=== PATIENT | female | born 1950 | race Caucasian/White ===

== ENCOUNTER 2016-12-02 18:44 | Emergency (ER) | payer MEDICARE ==
[2016-12-02 19:03] VITALS: BP 151/71
[2016-12-02] MEDS ORDERED: Albuterol/Ipratropium NEB.SOL* Albuterol 2.5 MG/Ipratropium 0.5 MG 3 ML INH ONE (19:09)
[2016-12-02] MEDS ORDERED: methylPREDNISolone SOD SUCC* 125 MG 2 ML VIAL IV ONE (19:11)
--- NOTE | 2016-12-02 19:11 | UC ---
Respiratory Complaint HPI - HPI Summary HPI Summary: The patient comes in today for: 1. Dyspnea: Onset: One week with a worsening over the last few days it has gotten worse. Palliative/provocative: Exertion. Quality: Wheezing. Region: LUngs: Severity: Time: Associated symptoms: The patient is on: Symbicort: 160/4.5 Albuterol nebulizer 2 x 24 hour period.--last episode last night. Albuterol inhaler 3-4 times in a 24 hour period. Prednisone: She has been on 30 mg/day for 2 days and then cut back to 2 today. Chest pain: "just a little bit in my back." She felt lightheaded to the point of almost fainting. * - History of Current Complaint Chief Complaint: UCRespiratory Stated Complaint: BREATHING ISSUE Time Seen by Provider: 12/02/16 18:58 Hx Obtained From: Patient - Allergies/Home Medications Allergies/Adverse Reactions: Allergies Allergy/AdvReac Type Severity Reaction Status Date / Time Amlodipine Allergy Severe Rash Verified 12/02/16 18:52 Iodinated Contrast Media Allergy Severe Hives/Diff. Verified 12/02/16 18:52 Breathing/I tching Iodine Allergy Mild Hives Verified 12/02/16 18:52 Doxycycline AdvReac Severe Nausea And Verified 12/02/16 18:52 Vomiting Home Medications: Home Medications Albuterol HFA INHALER* [Ventolin HFA Inhaler*] 2 inhaler INH QID PRN 12/02/16 [ History Confirmed 12/02/16] Benzonatate CAP* [Tessalon 100 MG CAP*] 1 tab PO TID PRN 12/02/16 [History Confirmed 12/02/16] Levalbuterol 0.63MG/3ML NEB* [Xopenex 0.63MG/3ML NEB*] 1 udc INH TID PRN [History Confirmed 12/02/16] predniSONE TAB* [Deltasone TAB*] 2 tab PO DAILY 12/02/16 [History Confirmed ] PMH/Surg Hx/FS Hx/Imm Hx Previously Healthy: No Endocrine History Of: Reports: Thyroid Disease - HYPOTHYROID Denies: Diabetes, Hyperthyroidism, Hypothyroidism, Dyslipidemia Cardiovascular History Of: Reports: Cardiac Disorders - "extra beats", Hypertension Denies: Pacemaker/ICD, Myocardial Infarction, Congestive Heart Failure, Atrial Fibrillation, Deep Vein Thrombosis, Bleeding Disorders Respiratory History Of: Reports: Asthma Denies: COPD GI/ History Of: Reports: Gastroesophageal Reflux Denies: Ulcer, Gastrointestinal Bleed, Gall Bladder Disease, Kidney Stones, Diverticulitis, Renal Disease, Urosepsis Neurological History Of: Denies: TIA, CVA, Dementia, Seizures, Migraine Psychological History Of: Denies: Anxiety, Depression, Bipolar Disorder, Schizophrenia, Post Traumatic Stress Disorder Cancer History Of: Denies: Lung Cancer, Colorectal Cancer, Breast Cancer, Prostate Cancer, Cervical Cancer Other History Of: Negative For: HIV, Hepatitis B, Hepatitis C, Anticoagulant Therapy - Surgical History Surgical History: Yes Surgery Procedure, Year, and Place: LEFT HAND X 4, LEFT KNEE, T&A, C-SECT;p Bilateral Cataract Surgery 2011. [facility]. bilateral eye laser surgery. - Family History Known Family History: Positive: Cardiac Disease, Hypertension - Social History Occupation: Retired Alcohol Use: None Substance Use Type: None Smoking Status (MU): Former Smoker Type: Cigarettes Amount Used/How Often: QUIT IN 1982 Length of Time of Smoking/Using Tobacco: 10-15 years Have You Smoked in the Last Year: No When Did the Patient Quit Smoking/Using Tobacco: quit 1982 Review of Systems Constitutional: Negative Skin: Negative Eyes: Negative ENT: Negative Respiratory: Shortness Of Breath, Cough All Other Systems Reviewed And Are Negative: Yes Physical Exam Triage Information Reviewed: Yes Appearance: Well-Appearing, No Pain Distress, Other: - She has audible wheezing and a shortened inspiration/expiration cycle. Vital Signs: Initial Vital Signs Temp 98.4 F 12/02/16 18:57 Pulse 81 12/02/16 18:57 Resp 24 12/02/16 18:57 BP 151/71 12/02/16 18:57 Pulse Ox 96 12/02/16 18:57 Vital Signs Reviewed: Yes Eyes: Positive: Conjunctiva Clear. Negative: Discharge ENT: Positive: Hearing grossly normal. Negative: Pharyngeal erythema, Nasal congestion, Nasal drainage, TM bulging, TM dull, TM red, Tonsillar swelling, Tonsillar exudate Dental: Negative: Gross Decay/Caries @, Dental Fracture @ Neck: Positive: Supple, Nontender, No Lymphadenopathy. Negative: Nuchal Rigidity Respiratory: Positive: Chest non-tender, Wheezing - Extensive and scattered wheezing. Markedly reduced inspiration/expiration cycle. Wheezing throughout all the whole breathing cycle., Other: - No intercostal retractions, but there is increased adipose tissue. She has a bluish discoloration of her lips.. Negative: Lungs clear, Normal breath sounds Cardiovascular: Positive: RRR, No Murmur Abdomen Description: Positive: Nontender, No Organomegaly, Soft. Negative: Distended, Guarding Musculoskeletal: Positive: Strength Intact, ROM Intact, No Edema Neurological: Positive: Alert, Muscle Tone Normal Psychological: Positive: Age Appropriate Behavior, Consolable Skin: Negative: rashes, breakdown UC Diagnostic Evaluation - Laboratory O2 Sat by Pulse Oximetry: 96 Respiratory Course/Dx - Course Course Of Treatment: Patient given a DuoNeb aerosol treatment and IV Solumedrol (125 mg). The DuoNEb did not make of a positive difference. She was told that I think due to her lack of response that it would probably be better if she were to go to the ER for more treatment and possible admission. She agreed, and after talking to the , they are going to go by private car. - Differential Dx/Diagnosis Differential Diagnosis/HQI/PQRI: Asthma, Bronchitis Provider Diagnoses: Asthma exacerbation. - Physician Notification/Consults Discussed Patient Care With: Marbin Braswell Time Discussed With Above Provider: 19:42 Discharge - Discharge Plan Condition: Stable Disposition: AGAINST MEDICAL ADVICE Additional Instructions: Please go directly to the [facility] ER.
[2016-12-02] MEDS ORDERED: NS 0.9% 1000 ML* 1,000 ML IV SCH (19:15)
== END 2016-12-02 19:45 | disposition left against medical advice (07) ==
LOC: UCEAST 18:44
DX: J45.901 Unspecified asthma with (acute) exacerbation (principal); E03.9 Hypothyroidism, unspecified; I10 Essential (primary) hypertension; J45.909 Unspecified asthma, uncomplicated; K21.9 Gastro-esophageal reflux disease without esophagitis; Z91.041 Radiographic dye allergy status; Z88.3 Allergy status to other anti-infective agents; Z87.891 Personal history of nicotine dependence
CPT/HCPCS: 96360; 96361; 96374; 99212; A9270-GY; G0463; J2930

== ENCOUNTER 2016-12-02 20:15 | Observation (INO) | payer MEDICARE ==
[2016-12-02] MEDS ORDERED: methylPREDNISolone SOD SUCC* 125 MG 2 ML VIAL IV ONE (20:25)
[2016-12-02] MEDS ORDERED: Albuterol 0.5% CONC NEB.SOL* 5 MG/ML 20 ml BOT ONE (20:37)
[2016-12-02] MEDS ORDERED: Ipratropium 0.5MG/2.5ML NEB* 0.5 MG/2.5 ML NEB.SOLN ONE (20:38)
[2016-12-02 20:52] LABS: Hematocrit 41 % (35-47); Hemoglobin 13.8 g/dl (12.0-16.0); Mean Corpuscular HGB Conc 34 g/dl (31-36); Mean Corpuscular Hemoglobin 30 pg (27-31); Mean Corpuscular Volume 89 fL (80-97); Mean Platelet Volume 8 um3 (7.4-10.4); Red Blood Count 4.58 10^6/ul (4.0-5.4); Red Cell Distribution Width 13 % (10.5-15); White Blood Count 6.3 10^3/ul (3.5-10.8)
[2016-12-02] MEDS ORDERED: Albuterol/Ipratropium NEB.SOL* Albuterol 2.5 MG/Ipratropium 0.5 MG 3 ML INH SCH (21:00)
--- NOTE | 2016-12-02 21:04 | RAD ---
HISTORY: Difficulty breathing COMPARISONS: October 05, 2013 VIEWS: 2: Frontal dual-energy and lateral views of the chest. FINDINGS: CARDIOMEDIASTINAL SILHOUETTE: The cardiomediastinal silhouette is normal. VINH: The vinh are normal. PLEURA: The costophrenic angles are sharp. No pleural abnormalities are noted. LUNG PARENCHYMA: There is minimal patchy alveolar opacification in the lingula. ABDOMEN: The upper abdomen is clear. There is no subphrenic gas. BONES AND SOFT TISSUES: No bone or soft tissue abnormalities are noted. OTHER: None. IMPRESSION: MINIMAL PATCHY ATELECTASIS VERSUS EARLY CONSOLIDATION IN THE LINGULA. RECOMMEND FOLLOW-UP UNTIL RESOLUTION TO EXCLUDE UNDERLYING PULMONARY PARENCHYMAL PATHOLOGY.
[2016-12-02] MEDS ORDERED: Albuterol 0.5% CONC NEB.SOL* 5 MG/ML 20 ml BOT INH ONE (21:07)
[2016-12-02 21:08] LABS: Albumin 4.4 g/dL (3.2-5.2); BUN/Creatinine Ratio 22.4 (8-20); Calcium 9.7 mg/dL (8.6-10.3); EGFR African American 66.2 (>60); EGFR Non-African American 51.5 (>60); Globulin 3.9 g/dL (2-4); Potassium 3.7 mmol/L (3.5-5.0); Total Bilirubin 0.4 mg/dL (0.2-1.0); Total Protein 8.3 g/dL (6.4-8.9)
[2016-12-02] MEDS ORDERED: Azithromycin IV(*) 500 MG in NS 0.9% 250 ML* 250 ML IVPB ONE (21:09)
[2016-12-02] MEDS ORDERED: cefTRIAXone(*) 1 GM in NS 0.9% 50 ML* 50 ML IVPB ONE (21:09)
[2016-12-02] MEDS ORDERED: Ipratropium 0.5MG/2.5ML NEB* 0.5 MG/2.5 ML NEB.SOLN INH ONE (21:09)
--- NOTE | 2016-12-02 21:10 | ED ---
Nael Colunga Michael, scribed for Jere Delgadillo MD on 12/02/16 at 2030 . Shortness of Breath - HPI Summary HPI Summary: 65 y/o female was referred to the ED from [facility]. The pt c/o SOB for one week that has worsened within the last 2 days and is aggravated upon exertion. She also presents with wheezing. The pt has a hx of asthma, and used her Albuterol nebulizer 2 times in 24 hours and her Albuterol inhaler 3-4 times today, but neither alleviate her symptoms. She does not have home oxygen. The pt denies all other symptoms. - History of Current Complaint Chief Complaint: EDShortnessOfBreath Time Seen by Provider: 12/02/16 20:22 Hx Obtained From: Patient, Medical Records Onset/Duration: Gradual Onset, Lasting Weeks, Still Present Timing: Intermittent Episodes Lasting: Current Severity: Moderate Dyspnea At: Rest Aggrevating Factors: Movement Alleviating Factors: Nothing Associated Signs & Symptoms: Wheezing - and SOB - Allergy/Home Medications Allergies/Adverse Reactions: Allergies Allergy/AdvReac Type Severity Reaction Status Date / Time Amlodipine Allergy Severe Rash Verified 12/02/16 21:03 Iodinated Contrast Media Allergy Severe Hives/Diff. Verified 12/02/16 21:03 Breathing/I tching Iodine Allergy Mild Hives Verified 12/02/16 21:03 Doxycycline AdvReac Severe Nausea And Verified 12/02/16 21:03 Vomiting Home Medications: Home Medications Potassium 20 meq PO DAILY 12/02/16 [History Confirmed 12/02/16] PMH/Surg Hx/FS Hx/Imm Hx Endocrine/Hematology History: Reports: Hx Thyroid Disease - HYPOTHYROID Denies: Hx Anticoagulant Therapy, Hx Diabetes Cardiovascular History: Reports: Hx Hypertension, Hx Rheumatic Fever - CHILD Denies: Hx Congestive Heart Failure, Hx Deep Vein Thrombosis, Hx Myocardial Infarction, Hx Pacemaker/ICD Comment Only: Other Cardiovascular Problems/Disorders - PT UNABLE TO STATE NAME OF HEART ISSUE?? Respiratory History: Reports: Hx Asthma, Hx Sleep Apnea - C PAP INST TO BRING Denies: Hx Chronic Obstructive Pulmonary Disease (COPD), Hx Lung Cancer GI History: Denies: Hx Gall Bladder Disease, Hx Gastrointestinal Bleed, Hx Ulcer, Hx Urosepsis History: Denies: Hx Kidney Stones, Hx Renal Disease Sensory History: Reports: Hx Contacts or Glasses - GLASSES Denies: Hx Hearing Aid Opthamlomology History: Reports: Hx Contacts or Glasses - GLASSES Neurological History: Reports: Other Neuro Impairments/Disorders - TMJ Denies: Hx Dementia, Hx Migraine, Hx Seizures, Hx Transient Ischemic Attacks (TIA) Psychiatric History: Denies: Hx Anxiety, Hx Depression, Hx Panic Disorder, Hx Schizophrenia, Hx Bipolar Disorder - Surgical History Surgery Procedure, Year, and Place: LEFT HAND X 4, LEFT KNEE, T&A, C-SECT;p Bilateral Cataract Surgery 2011. [facility]. bilateral eye laser surgery. Hx Anesthesia Reactions: No Infectious Disease History: Denies: Hx Clostridium Difficile, Hx Hepatitis, Hx Human Immunodeficiency Virus (HIV), Hx of Known/Suspected MRSA, Hx Shingles, Hx Tuberculosis, Hx Known/ Suspected VRE, Hx Known/Suspected VRSA, History Other Infectious Disease, Traveled Outside the in Last 30 Days - Family History Known Family History: Positive: Cardiac Disease, Hypertension - Social History Occupation: Retired Lives: With Family Alcohol Use: None Substance Use Type: Reports: None Smoking Status (MU): Former Smoker Type: Cigarettes Amount Used/How Often: QUIT IN 1982 Length of Time of Smoking/Using Tobacco: 10-15 years Have You Smoked in the Last Year: No Review of Systems Negative: Fever Positive: Shortness Of Breath, Other - wheezing All Other Systems Reviewed And Are Negative: Yes Physical Exam Triage Information Reviewed: Yes Vital Signs On Initial Exam: Initial Vitals Temp Pulse Resp BP Pulse Ox 99.5 F 86 24 152/64 99 12/02/16 20:17 12/02/16 20:17 12/02/16 20:17 12/02/16 20:17 12/02/16 20:17 Vital Signs Reviewed: Yes Appearance: Positive: No Pain Distress, Ill-Appearing Skin: Positive: Warm Head/Face: Positive: Normal Head/Face Inspection Eyes: Positive: SHANON ENT: Positive: Hearing grossly normal Neck: Positive: Supple Respiratory/Lung Sounds: Positive: Wheezes - diffuse bilat exp wheezes Cardiovascular: Positive: RRR Abdomen Description: Positive: Nontender, Soft Bowel Sounds: Positive: Present Neurological: Positive: Alert, Oriented to Person Place, Time Psychiatric: Positive: Affect/Mood Appropriate Diagnostics - Vital Signs Vital Signs Temp Pulse Resp BP Pulse Ox 12/02/16 20:17 99.5 F 86 24 152/64 99 - Laboratory Lab Results: Lab Results 12/02/16 12/02/16 12/02/16 Range/Units 20:25 20:25 20:25 WBC 6.3 (3.5-10.8) 10^3/ul RBC 4.58 (4.0-5.4) 10^6/ul Hgb 13.8 (12.0-16.0) g/dl Hct 41 (35-47) % MCV 89 (80-97) fL MCH 30 (27-31) pg MCHC 34 (31-36) g/dl RDW 13 (10.5-15) % Plt Count 248 (150-450) 10^3/ul MPV 8 (7.4-10.4) um3 Neut % (Auto) 58.8 (38-83) % Lymph % (Auto) 30.6 (25-47) % Logan % (Auto) 9.9 H (1-9) % Eos % (Auto) 0 (0-6) % Baso % (Auto) 0.7 (0-2) % Absolute Neuts (auto) 3.7 (1.5-7.7) 10^3/ul Absolute Lymphs (auto) 1.9 (1.0-4.8) 10^3/ul Absolute Monos (auto) 0.6 (0-0.8) 10^3/ul Absolute Eos (auto) 0 (0-0.6) 10^3/ul Absolute Basos (auto) 0 (0-0.2) 10^3/ul Absolute Nucleated RBC 0 10^3/ul Nucleated RBC % 0 Sodium 135 (133-145) mmol/L Potassium 3.7 (3.5-5.0) mmol/L Chloride 100 L (101-111) mmol/L Carbon Dioxide 26 (22-32) mmol/L Anion Gap 9 (2-11) mmol/L BUN 24 (6-24) mg/dL Creatinine 1.07 H (0.51-0.95) mg/dL Est GFR ( Amer) 66.2 (>60) Est GFR (Non-Af Amer) 51.5 (>60) BUN/Creatinine Ratio 22.4 H (8-20) Glucose 118 H (70-100) mg/dL Lactic Acid 1.5 (0.5-2.0) mmol/L Calcium 9.7 (8.6-10.3) mg/dL Total Bilirubin 0.40 (0.2-1.0) mg/dL AST 34 (13-39) U/L ALT 27 (7-52) U/L Alkaline Phosphatase 77 (34-104) U/L Troponin I 0.00 (<0.04) ng/mL Total Protein 8.3 (6.4-8.9) g/dL Albumin 4.4 (3.2-5.2) g/dL Globulin 3.9 (2-4) g/dL Albumin/Globulin Ratio 1.1 (1-3) Result Diagrams: 12/02/16 20:25 12/02/16 20:25 Lab Statement: Any lab studies that have been ordered have been reviewed, and results considered in the medical decision making process. - Radiology Chest XR Xray Interpretation: Positive (See Comments) - MINIMAL PATCHY ATELECTASIS VERSUS EARLY CONSOLIDATION IN THE [place]INGULA. RECOMMEND FOLLOW-UP UNTIL RESOLUTION TO EXCLUDE UNDERLYING PULMONARY PARENCHYMAL PATHOLOGY. Radiology Interpretation Completed By: Radiologist - EKG EK EKG Rhythm: Sinus Rhythm - [address] Segment: Normal Ectopy: None Course/Dx - Course Course Of Treatment: discussed pt care with Dr. Mills at 2100 pt will be admitted to [facility]. - Diagnoses Provider Diagnoses: COPD exacerbation - Physician Notifications Instructed by Provider To: Admit As Inpatient Discharge - Discharge Plan Condition: Guarded Disposition: ADMITTED TO [facility] The documentation as recorded by the Nael mensah Michael accurately reflects the service I personally performed and the decisions made by , Jere Delgadillo MD.
[2016-12-02] MEDS ORDERED: Albuterol/Ipratropium NEB.SOL* Albuterol 2.5 MG/Ipratropium 0.5 MG 3 ML INH PRN (22:13)
[2016-12-02] MEDS ORDERED: NS 0.9% 1000 ML* 1,000 ML IV SCH (22:30)
[2016-12-02 23:57] LABS: Urine Bilirubin Negative (Negative); Urine Glucose Negative (Negative); Urine Nitrite Negative (Negative)
[2016-12-03] MEDS ORDERED: Benzonatate CAP* 100 MG PO PRN (02:01)
--- NOTE | 2016-12-03 02:30 | HP ---
HOSPITAL MEDICINE HISTORY AND PHYSICAL: DATE OF ADMISSION: 12/02/16 PRIMARY CARE PHYSICIAN: Dr. Huerta. ATTENDING PHYSICIAN: Dr. Luciano Mills* (dictation provided by Batool Peguero NP). CHIEF COMPLAINT: Cough and shortness of breath. HISTORY OF PRESENT ILLNESS: Ms. Garcia is a 65-year-old female with a past medical history of what she reports as asthma, who was followed by a brass pourer at [place] as well as hypertension, obstructive sleep apnea, and hypothyroidism, who presents to the hospital today with complaint of cough and shortness of breath. She states she started feeling unwell about a week ago with shortness of breath. She has had a cough without sputum production. She has had no fever. She has had limited oral intake but has been tolerating it well with no nausea or abdominal pain. She has had normal formed bowel movements. She denies any sick contacts. She had no recent travel. In the emergency room, Ms. Garcia was very wheezy on arrival. She had a chest x - ray, which shows concern for a possible and very small infiltrate in the lingula. EKG shows no evidence of arrhythmia or ischemia. Heart rate is elevated at about 110, her blood pressure is stable, she is afebrile. PAST MEDICAL HISTORY: 1. Asthma, followed by Dr. Linares in [place]. 2. Hypothyroidism. 3. Obstructive sleep apnea, on CPAP at home. 4. Hypertension. 5. "Hole in heart" followed with Dr. Brenner. 6. History of . 7. Left knee surgery. 8. Multiple left hand surgeries. MEDICATIONS: 1. Albuterol inhaler 2 puffs inhaled 4 times a day p.r.n. 2. Symbicort 160/4.5 one puff inhaled b.i.d. 3. Levalbuterol nebulizer inhaled t.i.d. p.r.n. 4. Aspirin 81 mg p.o. daily. 5. Hydrochlorothiazide 25 mg p.o. q.a.m. 6. Levothyroxine 125 mcg p.o. daily. 7. Losartan 50 mg daily. 8. Potassium 20 mEq p.o. daily. ALLERGIES: AMLODIPINE, IODINATED CONTRAST MEDIA, IODINE, and DOXYCYCLINE. FAMILY HISTORY: The patient reports that her mother is still alive, she has "heart trouble," thyroid problems, and hypertension. Dad related to heart attack. She has 1 son who is alive and well. SOCIAL HISTORY: The patient quit smoking in 1982. She drinks alcohol only very occasionally. There is no report of drug use. She lives with her who is her healthcare proxy. REVIEW OF SYSTEMS: A 14-point review of systems was completed with Ms. Garcia and all those not mentioned above were negative. I will note that her asthma has been active for at least 10 years. She follows with Dr. Linares at [place]. She states her allergies are smoke, diesel emissions and some perfumes. She notes no allergy trigger for this episode. I will also note that the patient did mention during the examination that she had had 3 episodes of urinary incontinence recently. She has had no dysuria, no frequency. This urinary incontinence is new for her. PHYSICAL EXAMINATION GENERAL: Ms. Garcia is lying in the bed. She is asleep and walking in the room but she wakens easily to voice. She does have a very harsh nonproductive cough on examining her. VITAL SIGNS: Temperature 98.3, pulse rate 98, respiratory rate 20, O2 saturation 95% on room air, blood pressure 121/52. LUNGS: Diminished bilaterally, but with significant expiratory wheezing. There is no rhonchi. No accessory muscle use. She is able to speak in complete sentences. HEART: S1, S2. No murmur, rub or gallop and regular. ABDOMEN: Soft and nontender with bowel sounds positive x4. EXTREMITIES: No cyanosis or edema. SKIN: Intact. NEUROLOGIC: She is alert and oriented x3. She moves all extremities equally. There is no facial asymmetry or focal weakness. Extraocular movements were intact. DIAGNOSTIC STUDIES/LAB DATA: Sodium 135, potassium 3.7, chloride 100, serum bicarbonate 26, BUN 24, creatinine 1.07, glucose 118, lactic acid 1.5. WBC 6.3 , hemoglobin 13.8, hematocrit 41, and platelet count 248. Chest x-ray is read as follows, "minimal patchy atelectasis versus early consolidation in the lingula. Recommend followup until resolution to exclude underlying pulmonary parenchymal pathology. ASSESSMENT: Ms. Garcia is a 65-year-old female with a past medical history of asthma, hypertension, obstructive sleep apnea, and hypothyroidism, who presents today to the hospital with concern for cough and shortness of breath. In the emergency room, she was significantly wheezy on arrival and there was a concern for possibly infiltrate in the lingula. Plans are for observation in the hospital for the followin. Shortness of breath and cough: I suspect the patient has a chronic obstructive pulmonary disease exacerbation, though her x-ray shows concern for possible early infiltrate. Plan to treat with prednisone, DuoNebs, oxygen, and ceftriaxone with azithromycin. I will note that she has no leukocytosis or fever. Her lactic acid is normal. I see no evidence of congestive heart failure or other etiology for her symptoms. 2. Urinary incontinence. I am planning to check a urinalysis. I question if perhaps her incontinence is related to severe coughing and strain, but will await the results of the UA. 3. Acute kidney injury. The patient's creatinine is very slightly elevated. Plan to provide her a liter of IV fluids. I am going to be holding her losartan and hydrochlorothiazide tonight. We can reevaluate that tomorrow whether or not that would be appropriate to restart those in the a.m. 4. Hypothyroidism. Continue levothyroxine. 5. DVT prophylaxis with heparin subcu. 6. Disposition to medical floor. TIME SPENT: Approximately 60 minutes were spent on the admission of this patient, and more than half of the time was spent with patient at the bedside reviewing the events leading up to this hospitalization, performing the physical examination, and reviewing the plan of care. BATOOL PEGUERO NP CC: Dr. Huerta* [id number]/[facility] #: [id number] BALDEV
[2016-12-03] MEDS ORDERED: Levothyroxine TAB* 125 MCG TAB PO SCH (06:00)
[2016-12-03] MEDS ORDERED: Heparin VIAL(*) 5000 UNITS/ML VIAL (FIVE THOUSAND) SUBCUT SCH (06:00)
[2016-12-03 08:19] VITALS: BP 111/46
[2016-12-03] MEDS ORDERED: Potassium Chlor TAB* 20 MEQ TAB.ER PO SCH (09:00)
[2016-12-03] MEDS ORDERED: Azithromycin TAB* 250 MG PO SCH (09:00)
[2016-12-03] MEDS ORDERED: Hydrochlorothiazide TAB* 25 MG PO SCH (09:00)
[2016-12-03] MEDS ORDERED: predniSONE TAB* 20 MG PO SCH (09:00)
[2016-12-03] MEDS ORDERED: Aspirin EC Low Dose* 81 MG TAB.EC PO SCH (09:00)
[2016-12-03] MEDS ORDERED: Losartan TAB* 25 MG PO SCH (09:00)
[2016-12-03] MEDS ORDERED: cefTRIAXone VIAL(*) 1,000 MG in NS 0.9% 50 ML* 50 ML IVPB SCH (21:00)
--- NOTE | 2016-12-04 02:18 | DS ---
DISCHARGE SUMMARY: DATE OF ADMISSION: 12/02/16 DATE OF DISCHARGE: 12/03/16 PRIMARY CARE PROVIDER: Jayne Huerta MD DISCHARGING PROVIDER: CEM Sparks. SUPERVISING PHYSICIAN: Jayson Harris MD* (dictated by CEM Sparks). PRIMARY DISCHARGE DIAGNOSES: 1. Pneumonia. 2. Asthma exacerbation. 3. Acute kidney injury. SECONDARY DISCHARGE DIAGNOSES: 1. Obstructive sleep apnea, unable to tolerate sleep CPAP. 2. Hypertension. 3. Hypothyroidism. DISCHARGE MEDICATIONS: 1. Aspirin 81 mg p.o. daily. 2. Losartan 50 mg p.o. daily. 3. Potassium 20 mEq p.o. daily. 4. Ventolin 2 puffs inhaled 4 times daily as needed for shortness of breath. 5. Azithromycin 250 mg p.o. daily x4 days. 6. Tessalon Perles 100 mg p.o. t.i.d. as needed for cough. 7. Symbicort 160/4.5 one puff inhaled twice daily. 8. Cefuroxime 500 mg p.o. b.i.d. x7 days. 9. Hydrochlorothiazide 25 mg p.o. daily. 10. Xopenex inhaled 3 times daily as needed for shortness of breath. 11. Levothyroxine 125 mcg p.o. daily. 12. Prednisone 60 mg p.o. daily x3 days followed by 40 mg x3 days, followed by 20 mg x3 days. MEDICATION CHANGES: 1. Prednisone at a tapering dose. 2. Azithromycin x4 days. 3. Cefuroxime x7 days. HOSPITAL IMAGIN. Chest x-ray shows possible early consolidation and lingula, otherwise no acute process. 2. EKG shows a normal sinus rhythm. HOSPITAL COURSE: This is a 65-year-old patient with a history of asthma, obstructive sleep apnea, hypothyroidism, and hypertension who presented to the emergency department with a 1-week history of cough and shortness of breath. The patient had been quite active yesterday outside with her grandchildren in preparation for the and her symptoms became significantly worse. She has been using her rescue inhaler frequently at home and her nebulizer occasionally with some improvement, but overall her symptoms were becoming progressively worse. Initial chest x-ray demonstrated a possible early consolidation in the lingula and otherwise was within normal limits. She had no leukocytosis or fever. Comprehensive metabolic panel is significant for mildly elevated BUN to 24 and creatinine of 1.07 and estimated GFR of 51. She has no history of renal insufficiency at baseline. Remainder of her labs were unremarkable including a normal urinalysis. The patient was noted to have significant wheeze on exam, but was not significantly hypoxic at any point. The patient was subsequently admitted to an observation status for asthma exacerbation and possible pneumonia. She received Solu-Medrol in the emergency department, which was subsequently followed by oral prednisone as well as azithromycin and ceftriaxone. Attempted to use CPAP machine overnight, but the patient became severely claustrophobic and was unable to tolerate. The patient reported improvement with the interventions listed above and noted significant improvement with the use of nebulizer treatments as well. She was mildly dyspneic with ambulating to the bathroom and back, but felt that her energy had improved as had her respiratory symptoms to the point that she wished to be discharge to home. Again, no hypoxia noted. The patient did still have a slight wheeze appreciated on exam at the time of discharge, but markedly improved since the time of admission. DISPOSITION: The patient is being discharged to home, where she lives with her . Medications changes as outlined above including oral steroids, antibiotics, and she also received instructions to use her nebulizer machine on a regular basis for the next several days and then reduce the use to a p.r.n. basis. She is encouraged to follow up with her primary care provider at some point in the next week to ensure her symptoms continued to improve. CEM SPARKS CC: Jayne Huerta MD* [id number]/[facility] #: [id number] MTDD
== END 2016-12-03 09:40 | disposition home or self-care (01) ==
LOC: ED 20:15 → MED 21:38
PROVIDERS: ADMIT Hospitalist; ATTEND Internal Medicine
DX: J18.9 Pneumonia, unspecified organism (principal); J45.901 Unspecified asthma with (acute) exacerbation; N17.9 Acute kidney failure, unspecified; R32 Unspecified urinary incontinence; G47.33 Obstructive sleep apnea (adult) (pediatric); E03.9 Hypothyroidism, unspecified; I10 Essential (primary) hypertension; Z79.899 Other long term (current) drug therapy; Z88.1 Allergy status to other antibiotic agents; Z91.041 Radiographic dye allergy status; Z87.891 Personal history of nicotine dependence
CPT/HCPCS: 36415; 71020; 80053; 81003; 83605; 83880; 84484; 85025; 87040; 93005; 94660; 96365; 96366; 96372; 96375; 99284; A9270-GY; G0378; J0456; J0696; J1644; J2930; J7512; J7644

== ENCOUNTER 2017-05-28 14:50 | Emergency (ER) | payer MEDICARE ==
[2017-05-28 15:08] VITALS: BP 183/89
--- NOTE | 2017-05-28 16:36 | UC ---
Yaritza Colunga Abhishek, scribed for Clinton March MD on 05/28/17 at 1500 . General HPI - HPI Summary HPI Summary: Pt is a 66 y/o F who presents to [facility] c/o L-sided jaw pain and dental pain. Sx began 2 days ago on Sunday night. Pain began in the portion of the jaw by the L ear and has moved down the jaw, into the chin. Additionally c/o dental pain. Pt ranks pain intensity as 12/10 and characterized as sharp. Sx aggravated and alleviated by nothing, unchanged by moving the jaw. Denies CP, nausea, diaphoresis and acute SOB. Reports chronic SOB secondary to asthma without recent change. - History of Current Complaint Stated Complaint: JAW ACHE Time Seen by Provider: 05/28/17 14:55 Hx Obtained From: Patient Onset/Duration: Lasting Days - 2 days, Still Present Onset Severity: Worse Since: - Today Current Severity: Severe Pain Intensity: 12 Pain Location at: Left side of the jaw Character: Sharp Aggravating: Nothing Alleviating: Nothing Associated Signs & Symptoms: Negative: Chest Pain, Diaphoresis, Nausea, SOB - Allergy/Home Medications Allergies/Adverse Reactions: Allergies Allergy/AdvReac Type Severity Reaction Status Date / Time Amlodipine Allergy Severe Rash Verified 05/28/17 15:03 Iodinated Contrast Media Allergy Severe Hives/Diff. Verified 05/28/17 15:03 Breathing/I tching Iodine Allergy Mild Hives Verified 05/28/17 15:03 Doxycycline AdvReac Severe Nausea And Verified 05/28/17 15:03 Vomiting PMH/Surg Hx/FS Hx/Imm Hx - Additional Past Medical History Additional PMH: NEGATIVE: GA, HLD Cardiovascular History: Hypertension Other History Of: Negative For: HIV, Hepatitis B, Hepatitis C, Anticoagulant Therapy - Surgical History Surgical History: Yes Surgery Procedure, Year, and Place: LEFT HAND X 4, LEFT KNEE, T&A, C-SECT;p Bilateral Cataract Surgery 2011. [facility] [place]. bilateral eye [place]. - Family History Known Family History: Positive: Cardiac Disease, Hypertension - Social History Alcohol Use: None Substance Use Type: None Smoking Status (MU): Former Smoker Type: Cigarettes Amount Used/How Often: QUIT IN 1982 Length of Time of Smoking/Using Tobacco: 10-15 years Have You Smoked in the Last Year: No When Did the Patient Quit Smoking/Using Tobacco: quit 1982 Review of Systems Constitutional: Negative Skin: Negative Eyes: Negative ENT: Dental Pain, Other - Jaw pain Respiratory: Negative Cardiovascular: Negative Gastrointestinal: Negative Genitourinary: Negative Motor: Negative Neurovascular: Negative Musculoskeletal: Negative Neurological: Negative Psychological: Negative All Other Systems Reviewed And Are Negative: Yes - Comments Additional Review of Systems Comments: NEGATIVE: CP, nausea, diaphoresis and acute SOB. Physical Exam Triage Information Reviewed: Yes Vital Signs: Initial Vital Signs Temp 97.7 F 05/28/17 15:04 Pulse 77 05/28/17 15:04 Resp 17 05/28/17 15:04 BP 183/89 05/28/17 15:04 Pulse Ox 99 05/28/17 15:04 Vital Signs Reviewed: Yes - Additional Comments General: well-appearing, no pain distress Skin: warm, color reflects adequate perfusion, dry Head: normal Eyes: EOMI, SHANON ENT: TM normal, teeth have no obvious caries or decay with tenderness to percussion of the upper and lower left side, tenderness at the angle of the jaw down toward the left clavicle along the carotid artery distribution, no carotid bruit Neck: supple, nontender Respiratory: CTA, breath sounds present, no carotid bruit Cardiovascular: RRR Abdomen: soft, nontender Bowel: present Musculoskeletal: normal, strength/ROM intact Neurological: normal, sensory/motor intact, A&O x3 Psychological: affect/mood appropriate Diagnostics - EKG Cardiac Rate: NL - 79 bpm Cardiac Rhythm: Sinus: Normal Ectopy: None ST Segment: Normal Course/Dx - Course Course Of Treatment: Pt is a 66 y/o F who presents to [facility] c/o L-sided jaw pain and dental pain. Sx began 2 days ago on Sunday night. Pain began in the portion of the jaw by the L ear and has moved down the jaw, into the chin. Additionally c/o dental pain. Pt ranks pain intensity as 12/10 and characterized as sharp. Sx unchanged by moving the jaw. Denies CP, nausea, diaphoresis and acute SOB. Reports chronic SOB secondary to asthma without recent change. EKG is sinus rhythm with no ectopy and no ST changes. Discussed the need to be evaluated and worked up further in the ED. Advised ambulance trasport which the pt denied, opting for private vehicle transport. Pt will be D /C with directions to be immediately evaluated at [facility]. She understands and agrees. Allergies noted. MEDICATIONS REVIEWED. DISCUSSED WITH DR DIAZ IN THE ED. POV TO ED FOR IMAGING OF THE NECK AND BLOOD WORK TO EVAL FOR INFECTION/ CARDIAC CAUSES. - Differential Dx - Multi-Symptom Provider Diagnoses: LEFT NECK/JAW PAIN - Physician Notifications Discussed Patient Care With: Marcelo Diaz Time Discussed With Above Provider: 15:42 Instructed by Provider To: Other - Making him aware of the pt and he agrees for transfer Discharge - Discharge Plan Condition: Stable Disposition: HOME Patient Education Materials: Acute Neck Pain (ED) Referrals: Jayne Huerta MD [Primary Care Provider] - Additional Instructions: GO DIRECTLY TO THE EMERGENCY DEPARTEMNT FOR FURTHER EVALUATION AND CARE OF YOUR LEFT JAW AND NECK PAIN. The documentation as recorded by the Yaritza mensah Abhishek accurately reflects the service I personally performed and the decisions made by me, Clinton March MD.
== END 2017-05-28 15:58 | disposition home or self-care (01) ==
LOC: UCEAST 14:50
DX: R68.84 Jaw pain (principal); M54.2 Cervicalgia; I10 Essential (primary) hypertension; Z87.891 Personal history of nicotine dependence
CPT/HCPCS: 93005; 99212; G0463

== ENCOUNTER 2017-05-28 16:31 | Emergency (ER) | payer MEDICARE ==
[2017-05-28 18:55] VITALS: BP 156/86
== END 2017-05-28 20:20 | disposition left against medical advice (07) ==
LOC: ED 16:31
DX: R68.84 Jaw pain (principal); Z53.21 Procedure and treatment not carried out due to patient leaving prior to being seen by health care provider

== ENCOUNTER 2017-11-28 17:00 | Emergency (ER) | payer MEDICARE ==
--- NOTE | 2017-11-28 17:13 | UC ---
Eye Complaint HPI - HPI Summary HPI Summary: 66 y/o WF presents with left orbital, temporal, and jaw pain. She tells me that 1 week ago she had left eye irritation and redness. She had some leftover eye drops from a prior eye surgery and used them for one night. The next day her eye was better. The day after that, she developed pain around her left eye that , since, has progressed to her left temporal region and left mandible. She has been taking ibuprofen with no relief. She does have a hx of b/l glaucoma and b/ l cataracts. She sees Dr. De La Rosa, but did not call or inform his office - for reasons unknown to me. Denies fever, chills, sore throat, sinus congestion, recent illness, trauma, dizziness, vision changes. - History of Current Complaint Stated Complaint: EYE IRRITATION, EAR ACHE, AND SINUS PAIN Time Seen by Provider: 11/28/17 17:12 Hx Obtained From: Patient Onset/Duration: Gradual Onset Timing: Constant Severity Initially: Severe Severity Currently: Severe Pain Intensity: 8 Pain Scale Used: 0-10 Numeric - Allergies/Home Medications Allergies/Adverse Reactions: Allergies Allergy/AdvReac Type Severity Reaction Status Date / Time Iodinated Contrast- Oral and Allergy Intermediate hives/breat Verified 11/28/17 17:20 IV Dye nella iodine Allergy Intermediate Hives Verified 11/28/17 17:20 amlodipine Allergy Rash Verified 11/28/17 17:20 doxycycline Allergy nausea Verified 11/28/17 17:20 vomiting PMH/Surg Hx/FS Hx/Imm Hx Endocrine History: Hypothyroidism Cardiovascular History: Hypertension Respiratory History: Asthma Other History Of: Negative For: HIV, Hepatitis B, Hepatitis C, Anticoagulant Therapy - Surgical History Surgical History: Yes Surgery Procedure, Year, and Place: LEFT HAND X 4, LEFT KNEE, T&A, C-SECT;p Bilateral Cataract Surgery 2011. ALL [facility] [place]. bilateral eye laser surgery. - Family History Known Family History: Positive: Cardiac Disease, Hypertension - Social History Lives: With Family Alcohol Use: None Substance Use Type: None Smoking Status (MU): Former Smoker Type: Cigarettes Amount Used/How Often: QUIT IN 1982 Length of Time of Smoking/Using Tobacco: 10-15 years Have You Smoked in the Last Year: No When Did the Patient Quit Smoking/Using Tobacco: quit 1982 Review of Systems Constitutional: Negative Skin: Negative Eyes: Other - Left orbital pain ENT: Negative Respiratory: Negative Cardiovascular: Negative Neurovascular: Negative Musculoskeletal: Negative Neurological: Negative Psychological: Negative All Other Systems Reviewed And Are Negative: Yes Physical Exam - Summary Physical Exam Summary: GENERAL: NAD. WDWN. No pain distress. SKIN: No rashes, sores, ulcers, masses, lesions. HEENT: Head: AT/NC. Moderate tenderness to light palpation over temporal region, left orbit, and left mandible. No erythema, edema, or ecchymosis. Eyes: EOM intact, but pain with movement in left eye. PERRLA. Conjunctiva clear without inflammation or discharge. No injection. Vision OS/OD/ OU 20/20. Ears: Hearing grossly normal. TMs intact, no bulging, erythema, or edema. Nose: Nasal mucosa pink and moist. NTTP maxillary and frontal sinus. Throat: Posterior oropharynx without exudates, erythema, or tonsillar enlargement. Uvula midline. NECK: Supple. Nontender. No lymphadenopathy. CHEST: CTAB. No r/r/w. No accessory muscle use. Breathing comfortably and in no distress. CV: RRR. Without m/r/g. Pulses intact. Brisk cap refill. NEURO: A&Ox3. 3 word recall, remote, recent memory, ability to follow 2-step directions, and attention intact. CN II -XII grossly intact. Syjeae-ni-vhng are intact. Gait with normal base. Normal speech. No facial drooping. PSYCH: Age appropriate behavior. Triage Information Reviewed: Yes Eye Complaint Course/Dx - Course Course Of Treatment: I spoke to Dr. Mccracken (Optho) regarding pt's condition. He recommended drawing an ESR and CRP for potential GCA and have her f/u tomorrow morning with Dr. De La Rosa - if she cannot see him, he would see her in his office tomorrow morning. Labs drawn and pt notified. She was agreeable to this plan. iSTOP Reference #: [id number] and ok. - Differential Dx/Diagnosis Provider Diagnoses: Left orbital pain Discharge - Sign-Out/Discharge Documenting (check all that apply): Discharge - Discharge Plan Condition: Stable Disposition: HOME Prescriptions: HYDROcodone/ACETAMIN 5-325 MG* [[place] 5-325 TAB*] 1 tab PO BID PRN #6 tab MDD 2 PRN Reason: Pain Patient Education Materials: Temporal Arteritis (ED) Referrals: Naveen Mccracken MD [Medical Doctor] - If Needed Jayne Huerta MD [Primary Care Provider] - Additional Instructions: If you develop a fever, shortness of breath, chest pain, new or worsening symptoms - please call your PCP or go to the ED. 1) Please call Dr. De La Rosa tomorrow morning to get an appointment with him TOMORROW - if he cannot see you, please call Dr. Mccracken at the number below and he will see you tomorrow for follow up 2) If your symptoms worsen or if you begin to lose vision in your eye - please go directly to the ER - Billing Disposition and Condition Condition: STABLE Disposition: HOME
[2017-11-28 17:14] VITALS: BP 118/69
--- NOTE | 2017-11-29 17:31 | UC ---
- Progress Note Progress Note: Please fax labs results to [employer] Dr De La Rosa as soon as possible. CRP: 8.35mg/L (elevated), ESR: 39mm/hr (WNL) for further treatment Please notify Pt of results and let her know that Lab results were faxed to her Opthalmologist. Thank you Nesha Ta Pa-C Discharge - Sign-Out/Discharge Documenting (check all that apply): Discharge - Discharge Plan Condition: Stable Disposition: HOME Prescriptions: HYDROcodone/ACETAMIN 5-325 MG* [[place] 5-325 TAB*] 1 tab PO BID PRN #6 tab MDD 2 PRN Reason: Pain Patient Education Materials: Temporal Arteritis (ED) Referrals: Naveen Mccracken MD [Medical Doctor] - If Needed Jayne Huerta MD [Primary Care Provider] - Additional Instructions: If you develop a fever, shortness of breath, chest pain, new or worsening symptoms - please call your PCP or go to the ED. 1) Please call Dr. De La Rosa tomorrow morning to get an appointment with him TOMORROW - if he cannot see you, please call Dr. Mccracken at the number below and he will see you tomorrow for follow up 2) If your symptoms worsen or if you begin to lose vision in your eye - please go directly to the ER - Billing Disposition and Condition Condition: STABLE Disposition: HOME
== END 2017-11-28 18:30 | disposition home or self-care (01) ==
LOC: UCEAST 17:00
DX: H57.12 Ocular pain, left eye (principal); E03.9 Hypothyroidism, unspecified; I10 Essential (primary) hypertension; J45.909 Unspecified asthma, uncomplicated; Z98.42 Cataract extraction status, left eye; Z98.41 Cataract extraction status, right eye; Z88.8 Allergy status to other drugs, medicaments and biological substances; Z88.1 Allergy status to other antibiotic agents; Z91.041 Radiographic dye allergy status; Z87.891 Personal history of nicotine dependence
CPT/HCPCS: 36415; 85652; 86140; 99212; G0463

== ENCOUNTER 2018-06-20 17:48 | Emergency (ER) | payer MEDICARE ==
[2018-06-20 18:04] VITALS: BP 137/70
[2018-06-20] MEDS ORDERED: Ipratropium 0.5MG/2.5ML NEB* 0.5 MG/2.5 ML NEB.SOLN INH ONE (18:17)
[2018-06-20] MEDS ORDERED: Albuterol 2.5 MG/3 ML NEB.SOL* (0.083%) INH ONE (18:17)
--- NOTE | 2018-06-20 18:28 | UC ---
Respiratory Complaint HPI - HPI Summary HPI Summary: The patient is a 67-year-old female that has had a productive cough, wheezing, back pain associated with fever and chills for 4-5 days. She has back pain in the midthoracic area. She denies any chest pain or shortness of breath. She has not been using her nebulizer despite wheezing. She has no nausea vomiting or diarrhea. - History of Current Complaint Chief Complaint: UCGeneralIllness Stated Complaint: HEADACHES, AND COUGH Time Seen by Provider: 06/20/18 18:11 Hx Obtained From: Patient Hx Last Menstrual Period: na Onset/Duration: Gradual Onset, Lasting Days Timing: Constant Severity Initially: Mild Severity Currently: Severe Pain Intensity: 8 Pain Scale Used: 0-10 Numeric Character: Cough: Productive Aggravating Factors: Nothing Alleviating Factors: Nothing Associated Signs And Symptoms: Positive: Fever, Chills, Wheezing, Nasal Congestion, Sinus Discomfort. Negative: Pleuritic Chest Pain, Hemoptysis, Dizziness, Calf Pain, Calf Swelling, Edema, URI - Allergies/Home Medications Allergies/Adverse Reactions: Allergies Allergy/AdvReac Type Severity Reaction Status Date / Time Iodinated Contrast- Oral and Allergy Intermediate hives/breat Verified 06/20/18 18:05 IV Dye nella iodine Allergy Intermediate Hives Verified 06/20/18 18:05 amlodipine Allergy Rash Verified 06/20/18 18:05 doxycycline Allergy nausea Verified 06/20/18 18:05 vomiting Home Medications: Home Medications Triamterene/HCTZ 37.5-25 MG* [Dyazide CAP*] 1 cap PO DAILY 06/20/18 [History Confirmed 06/20/18] PMH/Surg Hx/FS Hx/Imm Hx Previously Healthy: Yes Endocrine History: Hypothyroidism, Dyslipidemia Cardiovascular History: Hypertension Other History Of: Negative For: HIV, Hepatitis B, Hepatitis C, Anticoagulant Therapy - Surgical History Surgical History: Yes Surgery Procedure, Year, and Place: LEFT HAND X 4, LEFT KNEE, T&A, C-SECT;p Bilateral Cataract Surgery 2011. ALL [facility] [place]. bilateral eye laser surgery. - Family History Known Family History: Positive: Cardiac Disease, Hypertension - Social History Alcohol Use: Occasionally Substance Use Type: None Smoking Status (MU): Former Smoker Type: Cigarettes Amount Used/How Often: QUIT IN 1982 Length of Time of Smoking/Using Tobacco: 10-15 years Have You Smoked in the Last Year: No When Did the Patient Quit Smoking/Using Tobacco: quit 1982 Review of Systems Constitutional: Chills, Fatigue Skin: Negative Eyes: Negative ENT: Sinus Congestion Respiratory: Cough Cardiovascular: Negative Gastrointestinal: Negative Genitourinary: Negative Motor: Negative Neurovascular: Negative Musculoskeletal: Negative Neurological: Negative Psychological: Negative All Other Systems Reviewed And Are Negative: Yes Physical Exam Triage Information Reviewed: Yes Appearance: Well-Appearing, No Pain Distress, Well-Nourished Vital Signs: Initial Vital Signs Temp 97.1 F 06/20/18 17:59 Pulse 78 06/20/18 17:59 Resp 20 06/20/18 17:59 BP 137/70 06/20/18 17:59 Pulse Ox 96 06/20/18 17:59 Vital Signs Reviewed: Yes Eyes: Positive: Conjunctiva Clear ENT: Positive: Hearing grossly normal, Nasal congestion, TMs normal. Negative: TM bulging, TM dull, TM red, Tonsillar swelling, Tonsillar exudate, Trismus, Muffled voice, Hoarse voice, Dental tenderness, Sinus tenderness, Uvula midline Neck: Positive: Supple, Nontender, No Lymphadenopathy Respiratory: Positive: No respiratory distress, No accessory muscle use, Crackles - right base, Wheezing Cardiovascular: Positive: RRR, No Murmur Musculoskeletal: Positive: ROM Intact, No Edema Neurological Exam: Normal Psychological Exam: Normal Skin Exam: Normal UC Diagnostic Evaluation - Laboratory O2 Sat by Pulse Oximetry: 96 - normal/not hypoxic - Radiology Radiology Interpretation Completed By: Radiologist Summary of Radiographic Findings: CXR: NAD Re-Evaluation - Re-Evaluation First Eval Re-Evaluation Time: 18:55 Change: Improved - still wheezing but decreased Respiratory Course/Dx - Differential Dx/Diagnosis Provider Diagnoses: acute bronchitis with bronchospasm Discharge - Sign-Out/Discharge Documenting (check all that apply): Patient Departure All imaging exams completed and their final reports reviewed: Yes - Discharge Plan Condition: Stable Disposition: HOME Prescriptions: Amoxicillin PO (*) [Amoxicillin 875 MG (*)] 875 mg PO BID #14 tab predniSONE [Deltasone 20 MG TAB] 40 mg PO DAILY #8 tab Patient Education Materials: Acute Bronchitis (ED) Referrals: Jayne Huerta MD [Primary Care Provider] - If Needed Additional Instructions: I suggest you use your nebulizer 4x day for 5 days recheck for new or worsening symptoms recheck in 4 days if not better - Billing Disposition and Condition Condition: STABLE Disposition: Home
--- NOTE | 2018-06-20 18:37 | RAD ---
INDICATION: 4 days of cough and wheezing COMPARISON: Most recent comparison chest x-ray is dated December 02, 2016 TECHNIQUE: PA and lateral views of the chest were obtained. FINDINGS: The heart and mediastinum are normal in size and contour. The lungs are grossly clear. There is no evidence of large pleural effusion. Visualized bones are normal for the patient's age. There is no radiographic evidence of free air beneath the diaphragm IMPRESSION: No radiographic evidence of acute cardiopulmonary disease.
[2018-06-20] MEDS ORDERED: predniSONE TAB* 20 MG PO ONE (18:53)
== END 2018-06-20 19:06 | disposition home or self-care (01) ==
LOC: UCEAST 17:48
DX: J20.9 Acute bronchitis, unspecified (principal); I10 Essential (primary) hypertension; Z88.8 Allergy status to other drugs, medicaments and biological substances; Z88.1 Allergy status to other antibiotic agents; Z91.041 Radiographic dye allergy status; Z87.891 Personal history of nicotine dependence
CPT/HCPCS: 71046; 99212; G0463; J7512

== ENCOUNTER 2018-10-27 08:53 | Emergency (ER) | payer MEDICARE ==
--- NOTE | 2018-10-27 09:23 | UC ---
General HPI - HPI Summary HPI Summary: Pleasant 67 yo female c/o last couple days (pain woke her up last night), c/o R ear pain. Notes today puffy around ear / jaw. Able to open mouth, but painful in R jaw. No hx similar. Has been under a lot of stress, thinks might grind teeth at night. No recent dental work, but does have a dentist. Recently ( approx 4 days ago) returned from airplane trip from [place], no pain at that immediate time, did feel ears popping. Was tx'd with an abx and prednisone short taper prior to leaving to go to [place] (per PCP). No recent fever /chills. No vis / aud issues. Cough still present but better, regularly uses inhalers. - History of Current Complaint Chief Complaint: UCGeneralIllness Stated Complaint: EAR PAIN Time Seen by Provider: 10/27/18 09:15 Hx Obtained From: Patient Hx Last Menstrual Period: na Pain Intensity: 5 - Allergy/Home Medications Allergies/Adverse Reactions: Allergies Allergy/AdvReac Type Severity Reaction Status Date / Time Iodinated Contrast- Oral and Allergy Intermediate hives/breat Verified 10/27/18 09:06 IV Dye nella iodine Allergy Intermediate Hives Verified 10/27/18 09:06 amlodipine Allergy Rash Verified 10/27/18 09:06 doxycycline Allergy nausea Verified 10/27/18 09:06 vomiting PMH/Surg Hx/FS Hx/Imm Hx Previously Healthy: Yes Other History Of: Negative For: HIV, Hepatitis B, Hepatitis C, Anticoagulant Therapy - Surgical History Surgical History: Yes Surgery Procedure, Year, and Place: LEFT HAND X 5, LEFT KNEE, T&A, C-SECT;p Bilateral Cataract Surgery 2011. [facility] [place]. bilateral eye laser surgery. - Family History Known Family History: Positive: Cardiac Disease, Hypertension - Social History Alcohol Use: None Substance Use Type: None Smoking Status (MU): Former Smoker Type: Cigarettes Amount Used/How Often: QUIT IN 1982 Length of Time of Smoking/Using Tobacco: 10-15 years Have You Smoked in the Last Year: No When Did the Patient Quit Smoking/Using Tobacco: quit 1982 Review of Systems All Other Systems Reviewed And Are Negative: Yes Constitutional: Positive: Negative Skin: Positive: Negative Eyes: Positive: Negative ENT: Positive: Other - see hpi Respiratory: Positive: Cough Cardiovascular: Positive: Other - see hpi Gastrointestinal: Positive: Other - see hpi Motor: Positive: Other - see hpi Neurovascular: Positive: Other - see hpi Musculoskeletal: Positive: Other: - see hpi Neurological: Positive: Other - see hpi Psychological: Positive: Negative Is Patient Immunocompromised?: No Physical Exam Triage Information Reviewed: Yes Appearance: Well-Appearing - looks tired but nad, Well-Nourished Vital Signs: Initial Vital Signs Temp 98.5 F 10/27/18 09:08 Pulse 74 10/27/18 09:08 Resp 18 10/27/18 09:08 BP 124/46 10/27/18 09:08 Pulse Ox 97 10/27/18 09:08 Vital Signs Reviewed: Yes Eye Exam: Normal ENT Exam: Other Neck exam: Normal Neck: Positive: Supple, Nontender, No Lymphadenopathy Respiratory: Positive: No respiratory distress, No accessory muscle use, Wheezing, Other: - BS equal, mild exp wheeze bilat. No rhonchi. No tachypnea / dyspnea. Cardiovascular Exam: Normal Cardiovascular: Positive: RRR, No Murmur, Pulses Normal, Brisk Capillary Refill Abdominal Exam: Normal Abdomen Description: Positive: Nontender Musculoskeletal Exam: Normal - gait steady, moves x 4 ext's Neurological Exam: Normal - grossly nonfocal, no CN issues Psychological Exam: Normal - conversing easily and appropriately Skin Exam: Normal - see ENT but otherwise no visible rash There are several skin spots / discolorations incidentally noted during the course of physical examination. She fair skinned, blue eyed. Sees pcp yearly, she will check with pcp (at next visit, in 1-2 weeks). Course/Dx - Course Course Of Treatment: Serous otitis media bilat, no redness or evidence of infection. Repeat BP 112/60. Skin R jaw a little puffy, warm to touch. Less likely cellulitis, more c/w reactive inflammation d/t TMJ. Reviewed TMJ condition with pt, quetions as posed answered to the best of my ability. Re diazepam - routine controlled subs talk - no issues noted, d/w pt. Will start prednisone, d/w pt (she just completed a short course of prednisone 5 days ago, related to resp issues). Will f/u with Dentist this week if possible, as well as pcp. - Diagnoses Provider Diagnosis: TMJ arthritis Discharge - Sign-Out/Discharge Documenting (check all that apply): Patient Departure All imaging exams completed and their final reports reviewed: No Studies - Discharge Plan Condition: Stable Disposition: HOME Prescriptions: ceFUROXime TAB(*) [Ceftin TAB 250 MG(*)] 500 mg PO BID #14 tab Diazepam TAB(*) [Valium TAB(*)] 5 mg PO BEDTIME PRN #12 tab MDD 1 PRN Reason: Spasms predniSONE TAB* [Deltasone 10 MG TAB*] 10 mg PO DAILY #20 tab Patient Education Materials: Cellulitis (ED), Temporomandibular Disorder (ED), Serous Otitis Media (ED) Referrals: Jayne Huerta MD [Primary Care Provider] - Additional Instructions: Follow up with Dr. Huerta in the next 1-2 weeks for recheck (jaw, respiratory). Seek medical attention for worse or new problems. Call your Dentist on Sunday to schedule a visit, if possible this week. Consider Dermatology referral re skin check. - Billing Disposition and Condition Condition: STABLE Disposition: Home
[2018-10-27 09:57] VITALS: BP 112/60
== END 2018-10-27 10:00 | disposition home or self-care (01) ==
LOC: UCEAST 08:53
DX: M26.69 Other specified disorders of temporomandibular joint (principal); H65.93 Unspecified nonsuppurative otitis media, bilateral; Z88.8 Allergy status to other drugs, medicaments and biological substances; Z88.1 Allergy status to other antibiotic agents; Z88.3 Allergy status to other anti-infective agents; Z91.041 Radiographic dye allergy status; Z87.891 Personal history of nicotine dependence
CPT/HCPCS: 99212; G0463

== ENCOUNTER 2019-01-25 11:06 | Emergency (ER) | payer MEDICARE ==
--- NOTE | 2019-01-25 11:25 | ED ---
Lower Extremity - HPI Summary HPI Summary: A 68 y/o female present to [facility] with a chief complaint of constant lower leg pain for about two weeks. At triage she rated her pain as a 9/10 in severity. She claims that her pain started in her lower leg. She denies upper leg pain. At night she reports that her calf hurts, but she denies any swelling. Standing up or sitting upright while about to stand up worsens her pain. She has a Hx of thyroid disease and HTN. - History of Current Complaint Chief Complaint: EDExtremityLower Stated Complaint: "LEFT LEG PAIN PER PT" Time Seen by Provider: 01/25/19 11:14 Hx Obtained From: Patient Hx Last Menstrual Period: na Mechanism Of Injury: Unknown Onset of Pain: Prior to Arrival Onset/Duration: Weeks Severity Initially: Severe Severity Currently: Severe Pain Intensity: 9 Pain Scale Used: 0-10 Numeric Timing: Constant Location: Is Diffuse - left lower leg Character Of Pain: Unable To Describe Associated Signs And Symptoms: Negative: Swelling, Fever Aggravating Factor(s): Standing, Weight Bearing Alleviating Factor(s): Nothing - Allergies/Home Medications Allergies/Adverse Reactions: Allergies Allergy/AdvReac Type Severity Reaction Status Date / Time Iodinated Contrast- Oral and Allergy Intermediate hives/breat Verified 10/27/18 09:06 IV Dye nella iodine Allergy Intermediate Hives Verified 10/27/18 09:06 amlodipine Allergy Rash Verified 10/27/18 09:06 doxycycline Allergy nausea Verified 10/27/18 09:06 vomiting PMH/Surg Hx/FS Hx/Imm Hx Endocrine/Hematology History: Reports: Hx Thyroid Disease - HYPOTHYROID Denies: Hx Anticoagulant Therapy, Hx Diabetes Cardiovascular History: Reports: Hx Hypertension, Hx Rheumatic Fever - CHILD Denies: Hx Congestive Heart Failure, Hx Deep Vein Thrombosis, Hx Myocardial Infarction, Hx Pacemaker/ICD Comment Only: Other Cardiovascular Problems/Disorders - PT UNABLE TO STATE NAME OF HEART ISSUE?? Respiratory History: Reports: Hx Asthma, Hx Sleep Apnea - C PAP INST TO BRING Denies: Hx Chronic Obstructive Pulmonary Disease (COPD), Hx Lung Cancer GI History: Denies: Hx Gall Bladder Disease, Hx Gastrointestinal Bleed, Hx Ulcer, Hx Urosepsis History: Denies: Hx Kidney Stones, Hx Renal Disease Sensory History: Reports: Hx Contacts or Glasses - GLASSES Denies: Hx Hearing Aid Opthamlomology History: Reports: Hx Contacts or Glasses - GLASSES Neurological History: Reports: Other Neuro Impairments/Disorders - TMJ Denies: Hx Dementia, Hx Migraine, Hx Seizures, Hx Transient Ischemic Attacks (TIA) Psychiatric History: Denies: Hx Anxiety, Hx Depression, Hx Panic Disorder, Hx Schizophrenia, Hx Bipolar Disorder - Surgical History Surgery Procedure, Year, and Place: LEFT HAND X 5, LEFT KNEE, T&A, C-SECT;p Bilateral Cataract Surgery 2011. [facility]. bilateral eye laser surgery. Hx Anesthesia Reactions: No Infectious Disease History: No Infectious Disease History: Denies: Hx Clostridium Difficile, Hx Hepatitis, Hx Human Immunodeficiency Virus (HIV), Hx of Known/Suspected MRSA, Hx Shingles, Hx Tuberculosis, Hx Known/ Suspected VRE, Hx Known/Suspected VRSA, History Other Infectious Disease, Traveled Outside the [place] in Last 30 Days - Family History Known Family History: Positive: Cardiac Disease, Hypertension - Social History Alcohol Use: None Substance Use Type: Reports: None Smoking Status (MU): Former Smoker Type: Cigarettes Amount Used/How Often: QUIT IN 1982 Length of Time of Smoking/Using Tobacco: 10-15 years Have You Smoked in the Last Year: No Review of Systems Negative: Fever Positive: Other - positive: left leg pain. Negative: Edema All Other Systems Reviewed And Are Negative: Yes Physical Exam - Summary Physical Exam Summary: Appearance: The patient is well-nourished in no acute distress and in no acute pain. Skin: The skin is warm and dry and skin color reflects adequate perfusion. HEENT: The head is normocephalic and atraumatic. The pupils are equal and reactive. The conjunctivae are clear and without drainage. Nares are patent and without drainage. Mouth reveals moist mucous membranes and the throat is without erythema and exudate. The external ears are intact. The ear canals are patent and without drainage. The tympanic membranes are intact. Neck: The neck is supple with full range of motion and non-tender. There are no carotid bruits. There is no neck vein distension. Respiratory: Chest is non-tender. Lungs are clear to auscultation and breath sounds are symmetrical and equal. Cardiovascular: Heart is regular rate and rhythm. There is no murmur or rub auscultated. There is no peripheral edema and pulses are symmetrical and equal. Abdomen: The abdomen is soft and non-tender. There are normal bowel sounds heard in all four quadrants and there is no organomegaly palpated. Musculoskeletal: There is no back tenderness noted. Tender popliteal fossa. There is good capillary refill. There is no peripheral edema or calf tenderness elicited. Neurological: Patient is alert and oriented to person, place and time. The patient has symmetrical motor strength in all four extremities. Cranial nerves are grossly intact. Deep tendon reflexes are symmetrical and equal in all four extremities. Psychiatric: The patient has an appropriate affect and does not exhibit any anxiety or depression. Triage Information Reviewed: Yes Vital Signs On Initial Exam: Initial Vitals Temp Pulse Resp BP Pulse Ox 97.3 F 71 17 132/62 97 01/25/19 11:13 01/25/19 11:13 01/25/19 11:13 01/25/19 11:13 01/25/19 11:13 Vital Signs Reviewed: Yes Diagnostics - Vital Signs Vital Signs Temp Pulse Resp BP Pulse Ox 01/25/19 11:13 97.3 F 71 17 132/62 97 - Laboratory Result Diagrams: 01/25/19 11:33 01/25/19 11:33 Lab Statement: Any lab studies that have been ordered have been reviewed, and results considered in the medical decision making process. - Ultrasound No standard instances Ultrasound Interpretation Completed By: Radiologist Summary of Ultrasound Findings: VENOUS DOPPLER STUDY IMPRESSION: SLIGHTLY LIMITED EXAM OF THE CALF, NO EVIDENCE FOR DEEP VENOUS THROMBOSIS. ED physician has reviewed this imaging report. Re-Evaluation - Re-Evaluation First Eval Re-Evaluation Time: 13:39 Change: Unchanged Comment: discussed results and plan for discharge Lower Extremity Course/Dx - Course Course Of Treatment: Ms. Garcia presented with a couple weeks of left calf and behind the knee pain. It's been gradually getting worse. She has no known injury. There have been no fevers or other symptoms. Her exam is generally unremarkable although she did have some mild tenderness in her popliteal fossa. It was difficult for me to check her pulse there. She did have distal neurovascular motor completely intact including capillary refill less than 2 seconds. Labs were unremarkable as was a DVT study. I recommended symptomatic treatment as I don't think anything dangerous is going on and follow-up with her PCP. - Diagnoses Provider Diagnoses: Knee pain Discharge - Sign-Out/Discharge Documenting (check all that apply): Patient Departure - DC Patient Received Moderate/Deep Sedation with Procedure: No - Discharge Plan Condition: Stable Disposition: HOME Prescriptions: traMADol TAB* [Ultram*] 50 mg PO Q6HR PRN #20 tab MDD 4 PRN Reason: Pain Patient Education Materials: Knee Pain (ED) Referrals: Jayne Huerta MD [Medical Doctor] - (keep your apppointment with your PCP next week) Additional Instructions: Return to the ED if you experience any new or worsening symptoms. - Billing Disposition and Condition Condition: STABLE Disposition: Home - Attestation Statements Document Initiated by Scribe: Yes Documenting Scribe: Omar Fofana Provider For Whom Terrieibkayla is Documenting (Include Credential): Marcelo Diaz MD Scribe Attestation: I, Omar Fofana, scribed for Marcelo Diaz MD on 01/25/19 at 1852. Scribe Documentation Reviewed: Yes Provider Attestation: The documentation as recorded by the Omar mensah accurately reflects the service I personally performed and the decisions made by me, Marcelo Diaz MD Status of Scribe Document: Viewed
[2019-01-25 11:49] LABS: ABS Basophils 0.1 10^3/ul (0-0.2); ABS Eosinophils 0.4 10^3/ul (0-0.6); ABS Lymphocytes 2.7 10^3/ul (1.0-4.8); ABS Monocytes 0.6 10^3/ul (0-0.8); ABS Neutrophils 5.5 10^3/ul (1.5-7.7); Eosinophil % 4.8 %; Hematocrit 41 % (35-47); Hemoglobin 13.7 g/dL (12.0-16.0); Lymphocyte % 28.7 %; Mean Corpuscular HGB Conc 33 g/dL (31-36); Mean Corpuscular Hemoglobin 30 pg (27-31); Mean Corpuscular Volume 90 fL (80-97); Platelet Count 316 10^3/uL (150-450); Red Blood Count 4.57 10^6 /uL (3.70-4.87); Red Cell Distribution Width 13 % (10-15); White Blood Count 9.3 10^3/uL (3.5-10.8)
[2019-01-25 12:03] LABS: Albumin 4.2 g/dL (3.2-5.2); Albumin/Globulin Ratio 1.3 (1-3); BUN/Creatinine Ratio 24.4 (8-20); C Reactive Protein 8.19 mg/L (<8.01); Calcium 10.1 mg/dL (8.6-10.3); EGFR African American 79.4 (>60); EGFR Non-African American 65.6 (>60); Globulin 3.3 g/dL (2-4); Potassium 3.7 mmol/L (3.5-5.0); Total Bilirubin 0.5 mg/dL (0.2-1.0); Total Protein 7.5 g/dL (6.4-8.9)
[2019-01-25 14:27] VITALS: BP 124/67
== END 2019-01-25 14:26 | disposition home or self-care (01) ==
LOC: ED 11:06
DX: M25.562 Pain in left knee (principal); Z88.1 Allergy status to other antibiotic agents; Z91.041 Radiographic dye allergy status; Z88.8 Allergy status to other drugs, medicaments and biological substances; Z91.048 Other nonmedicinal substance allergy status; Z87.891 Personal history of nicotine dependence
CPT/HCPCS: 36415; 80053; 85025; 86140; 99282

== ENCOUNTER 2019-05-09 10:00 | Emergency (ER) | payer MEDICARE ==
[2019-05-09] MEDS ORDERED: Aspirin 81 mg CHEW TAB* 81 MG TAB.CHEW PO ONE (10:11)
--- NOTE | 2019-05-09 10:17 | ED ---
HPI Chest Pain - HPI Summary HPI Summary: The patient is a 68 y/o F presenting to [facility] with a chief complaint of sudden onset mid-sternal chest pain onset 15 minutes prior to arrival. She reports that she was talking to her sister when she became diaphoretic and lightheaded and began to experiencing stabbing mid-sternal and epigastric pain that radiates into the left upper back. Currently, her pain is rated 6/10, which has improved since onset. She hasnt taken any medications prior to arrival to treat the pain. She states that she has chronic shortness of breath with asthma , although she is currently on a course of 30mg Prednisone, which she did take this morning. 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 She states she has an irregular heart beat and has a hole in her heart. PMHx: HTN, dysrhythmia, GERD, hypothyroid, asthma. FHx: cardiac disease, DM. Former smoker, no EtOH, no substance use. Medications reviewed. Allergies noted. - History of Current Complaint Chief Complaint: EDChestPainROMI Hx Obtained From: Patient Hx Last Menstrual Period: na Onset/Duration: Started Minutes Ago - 15, Still Present Timing: Constant, Lasting Minutes Initial Severity: Severe - 8/10 Current Severity: Moderate - 6/10 Pain Intensity: 6 Pain Scale Used: 0-10 Numeric Chest Pain Location: Mid Sternal Chest Pain Radiates: Yes Chest Pain Radiates To:: Back - left upper, Epigastric Character: Sharp/Stabbing Aggravating Factor(s): Nothing Alleviating Factor(s): Nothing Associated Signs and Symptoms: Positive: Chest Pain - mid-sternal, Shortness of Breath, Lightheadedness, Diaphoresis, Nausea, Back Pain - left upper, Abdominal Pain - epigastric - Additional Pertinent History Primary Care Physician: [id number] - Allergy/Home Medications Allergies/Adverse Reactions: Allergies Allergy/AdvReac Type Severity Reaction Status Date / Time Iodinated Contrast Media Allergy Intermediate hives/breat Verified 10/27/18 09: 06 [Iodinated Contrast- Oral nella and IV Dye] iodine Allergy Intermediate Hives Verified 10/27/18 09:06 amlodipine Allergy Rash Verified 10/27/18 09:06 doxycycline Allergy nausea Verified 10/27/18 09:06 vomiting Home Medications: Home Medications Albuterol 2.5MG/3ML (0.083%)* [Ventolin 2.5 MG/3 ML NEB.BRENDAN*] 2.5 mg INH Q6H [History Confirmed 05/09/19] Aspirin EC TAB* [Ecotrin EC Low Dose 81 MG*] 81 mg PO DAILY 05/09/19 [History Confirmed 05/09/19] Losartan TAB* [Cozaar TAB*] 50 mg PO DAILY 05/09/19 [History Confirmed 05/09/19] PMH/Surg Hx/FS Hx/Imm Hx Endocrine/Hematology History: Reports: Hx Thyroid Disease - HYPOTHYROID Denies: Hx Anticoagulant Therapy, Hx Diabetes Cardiovascular History: Reports: Hx Hypertension, Hx Rheumatic Fever - CHILD , Other Cardiovascular Problems/Disorders - dysrhythmia, hole in heart Denies: Hx Congestive Heart Failure, Hx Deep Vein Thrombosis, Hx Hypercholesterolemia, Hx Myocardial Infarction, Hx Pacemaker/ICD Respiratory History: Reports: Hx Asthma, Hx Sleep Apnea - C PAP INST TO BRING Denies: Hx Chronic Obstructive Pulmonary Disease (COPD), Hx Lung Cancer GI History: Reports: Hx Gastroesophageal Reflux Disease Denies: Hx Gall Bladder Disease, Hx Gastrointestinal Bleed, Hx Ulcer, Hx Urosepsis History: Denies: Hx Kidney Stones, Hx Renal Disease Musculoskeletal History: Denies: Hx Rheumatoid Arthritis, Hx Osteoporosis Sensory History: Reports: Hx Contacts or Glasses - GLASSES Denies: Hx Hearing Aid Opthamlomology History: Reports: Hx Contacts or Glasses - GLASSES Neurological History: Reports: Other Neuro Impairments/Disorders - TMJ Denies: Hx Dementia, Hx Migraine, Hx Seizures, Hx Transient Ischemic Attacks (TIA) Psychiatric History: Denies: Hx Anxiety, Hx Depression, Hx Panic Disorder, Hx Schizophrenia, Hx Bipolar Disorder - Surgical History Surgical History: Yes Surgery Procedure, Year, and Place: LEFT HAND X 5, LEFT KNEE, T&A, C-SECT;p Bilateral Cataract Surgery 2011. [facility]. bilateral eye laser surgery. Hx Anesthesia Reactions: No Infectious Disease History: Denies: Hx Clostridium Difficile, Hx Hepatitis, Hx Human Immunodeficiency Virus (HIV), Hx of Known/Suspected MRSA, Hx Shingles, Hx Tuberculosis, Hx Known/ Suspected VRE, Hx Known/Suspected VRSA, History Other Infectious Disease - Family History Known Family History: Positive: Cardiac Disease, Hypertension - Social History Alcohol Use: None Substance Use Type: Reports: None Hx Tobacco Use: Yes Smoking Status (MU): Former Smoker Type: Cigarettes Amount Used/How Often: QUIT IN 1982 Length of Time of Smoking/Using Tobacco: 10-15 years Have You Smoked in the Last Year: No Review of Systems Positive: Skin Diaphoresis Positive: Chest Pain - mid-sternal Positive: Shortness Of Breath Positive: Abdominal Pain - epigastric, Nausea Positive: Other - left upper back pain radiating from chest Neurological: Other - lightheadedness All Other Systems Reviewed And Are Negative: Yes Physical Exam - Summary Physical Exam Summary: VITAL SIGNS: Reviewed. GENERAL: Patient is a well-developed and nourished female who is lying comfortable in the stretcher. Patient is not in any acute respiratory distress. HEAD AND FACE: No signs of trauma. No ecchymosis, hematomas or skull depressions. No sinus tenderness. EYES: PERRLA, EOMI x 2, No injected conjunctiva, no nystagmus. EARS: Hearing grossly intact. Ear canals and tympanic membranes are within normal limits. MOUTH: Oropharynx within normal limits. NECK: Supple, trachea is midline, no adenopathy, no JVD, no carotid bruit, no c- spine tenderness, neck with full ROM. CHEST: Symmetric, no tenderness at palpation. LUNGS: Clear to auscultation bilaterally. No wheezing or crackles. CVS: Regular rate and rhythm, S1 and S2 present, no murmurs or gallops appreciated. ABDOMEN: Soft, epigastric tenderness. No signs of distention. No rebound, no guarding, and no masses palpated. Bowel sounds are normal. EXTREMITIES: FROM in all major joints, no edema, no cyanosis or clubbing. NEURO: Alert and oriented x 3. No acute neurological deficits. Speech is normal and follows commands. SKIN: Dry and warm. Triage Information Reviewed: Yes Vital Signs On Initial Exam: Initial Vitals Pulse Resp BP Pulse Ox 76 20 137/68 97 05/09/19 10:02 05/09/19 10:02 05/09/19 10:02 05/09/19 10:02 Vital Signs Reviewed: Yes Diagnostics - Vital Signs Vital Signs Pulse Resp BP Pulse Ox 05/09/19 10:02 76 20 137/68 97 - Laboratory Result Diagrams: 05/09/19 10:42 05/09/19 10:42 Lab Statement: Any lab studies that have been ordered have been reviewed, and results considered in the medical decision making process. - Radiology CXR Radiology Interpretation Completed By: Radiologist Summary of Radiographic Findings: Impression: No evidence for active cardiopulmonary disease. ED physician has reviewed this report. - CT Chest/Abd/Pel CT CT Interpretation Completed By: Radiologist Summary of CT Findings: Impression: No definite evidence of displaced intimal calcifications to suggest dissection. The study is somewhat limited due to lack of IV contrast however probability of dissection is likely low. There is infiltration of fat in the mesentery which may represent mesenteric panniculitis. No other masses are noted. ED physician has reviewed this report. - EKG 1003 Cardiac Rate: NL - 77 bpm EKG Rhythm: Sinus Rhythm EKG Comparison: No Significant Change - Similar to previous EKG taken on . Summary of EKG Findings: EKG at 1003 reveals SR at [address] elevations in the inferior and lateral leads. Re-Evaluation - Re-Evaluation First Eval Re-Evaluation Time: 14:00 Change: Improved Comment: Her pain has improved, and she would like to go home. I discussed all findings with the patient. We discussed plan for discharge. Chest Pain Course/Dx - Course Assessment/Plan: Patient is a 68 y/o F with hx of dysrhythmia, asthma, and GERD , with a chief complaint of sudden onset stabbing mid-sternal chest and epigastric pain radiating to the upper left back beginning 15 minutes prior to arrival with associated symptoms of diaphoresis, lightheadedness, and nausea. Blood work without any significant abnormality except for WBCs of 12.2, chloride of 100, BUN of 28, creatinine of 0.96, glucose of 236, and urinalysis is negative for UTI. Since the patient was initially reporting epigastric pain and chest pain radiating into the back I decided to do a CTA of the chest abdomen and pelvis to rule out dissection. However, the patient reported that she is allergic to iodine contrast. Therefore I discussed the case with Dr. Tello from radiology and he recommended to do a CT without contrast. Chest, abdomen, pelvis CT IMPRESSION: No definite evidence of displaced intimal calcifications to suggest dissection. The study is somewhat limited due to lack of IV contrast however probability of dissection is likely low. There is infiltration of fat in the mesentery which may represent mesenteric panniculitis. No other masses are noted. The patient also reported that she is taking prednisone and she felt like this stabbing burning sensation in the epigastric area therefore I believe that the patients symptoms are secondary to irritation of the gastric mucosa secondary to the Prednisone. Therefore, the patient was given morphine for the pain and also a GI cocktail. The patient reports that after the GI cocktail, her symptoms have significantly improved. The pain is only 1 out of 10 at this time. Second troponin 4 hours apart is 0.00. The patient continues to be asymptomatic at this point. I discussed all the findings and test results with the patient. Patient was instructed to return to the emergency room immediately if any of the symptoms return or worsen. Plan of care was discussed with the patient, and she understands and agrees. All questions were answered at patient satisfaction. There were no further complaints or concerns. Lung exam before discharge: CTA B/L. Good air exchange. No wheezing or crackles heard. CVS: S1 and S2 present. No murmurs appreciated. Patient is alert and oriented x 3. Patient is hemodynamically stable. Patient will be discharged home with follow up PCP in the next 2-3 days. - Diagnoses Provider Diagnoses: Epigastric pain - Provider Notifications Discussed Care Of Patient With: Amber Tello - radiology Time Discussed With Above Provider: 10:28 Instructed by Provider To: Other - Dr. Tello recommends CT without contrast to rule out dissection since the patient is allergic to iodine contrast. Discharge ED - Sign-Out/Discharge Documenting (check all that apply): Patient Departure - Patient will be discharged home. Patient Received Moderate/Deep Sedation with Procedure: No - Discharge Plan Condition: Stable Disposition: HOME Prescriptions: Pantoprazole TAB * [Protonix TAB*] 40 mg PO DAILY #20 tab Patient Education Materials: Chest Pain (DC), Epigastric Pain (ED) Referrals: Genet Story MD [Primary Care Provider] - 3 Days Additional Instructions: Follow up with your primary care provider in 2-3 days. Return to the emergency department for any new or worsening symptoms. - Billing Disposition and Condition Condition: STABLE Disposition: Home - Attestation Statements Document Initiated by Scribe: Yes Documenting Scribe: Akilah Bower Provider For Whom Scribe is Documenting (Include Credential): Dr. Thierry Pulliam MD Scribe Attestation: IAkilah scribed for Dr. Thierry Pulliam MD on 05/09/19 at 1414. Scribe Documentation Reviewed: Yes Provider Attestation: The documentation as recorded by the scribe, Akilah Bower accurately reflects the service I personally performed and the decisions made by me, Dr. Thierry Pulliam MD Status of Scribe Document: Ready
[2019-05-09] MEDS ORDERED: Morphine 4 MG/ML VIAL (1 ml) 4 MG/ML VIAL IV ONE (10:20)
[2019-05-09] MEDS ORDERED: Ondansetron INJ* 2 MG/ML VIAL IV ONE (10:21)
[2019-05-09] MEDS ORDERED: Al Hydrox/Mg Hydrox/Simet LIQ* 30 ML UDC PO ONE (10:35)
[2019-05-09] MEDS ORDERED: Lidocaine 2% VISCOUS* 15 ML UDC PO ONE (10:35)
--- OUTSIDE RECORDS SUMMARY | 2019-05-09 10:47 | XMS REPORT | Continuity of Care Document ---
:1950 External Reference #:[id number] Author Name Genet Story MD (transmitted by agent of provider Luann Goldstein) Address [address], [address] [place] [id number] Care Team Providers Name Role Phone Genet Story MD - Internal Medicine Care Team Information Napper Fixer [phone] Problems Active Problems Provider Date Benign essential hypertension Helen Brenner M.D. Onset: 10/27/2011 Ostium secundum type atrial septal Helen Brenner M.D. Onset: 2011 defect Dyspnea Helen Brenner M.D. Onset: 10/27/2011 Hypothyroidism Helen Brenner M.D. Onset: 11/01/2012 Palpitations Helen Brenner M.D. Onset: 05/08/2014 Obstructive sleep apnea of adult Mari Hein DNP RN, Onset: 08/04/2014 [facility] Essential hypertension Helen Brenner M.D. Onset: 09/20/2015 Uncomplicated moderate persistent Onset: asthma Social History Type Date Description Comments Sex Unknown Tobacco Use Start: Unknown End: Former Cigarette Smoker Unknown Smoking Status Reviewed: 04/28/19 Former Cigarette Smoker ETOH Use Rarely consumes alcohol Tobacco Use Start: Unknown End: Patient is a former smoker quit in 1982 Unknown Recreational Drug Use Never Used Drugs Exercise Type/Frequency Exercises sporadically Allergies, Adverse Reactions, Alerts Active Allergies Reaction Severity Comments Date contrast dye hives, dypnea 08/02/2006 Norvasc resp difficulty 09/08/2009 Spiriva headache, nose bleed 12/01/2011 Doxycycline vomiting 09/05/2013 Contrast Dye Urticaria Severe 02/07/2017 Medications Active Medications SIG Qnty Indications Ordering Date Provider Azithromycin take 2 tablets 6tabs J45.901 Genet Story MD 04/28/2019 250mg today; then one Tablets tablet daily Prednisone take 4 tabs by 20tabs J45.901 Genet Story MD 04/28/2019 10mg Tablets mouth daily for 2 days then 3 tabs daily for 2 days then 2 tabs for 2 days then 1 tab for 2 days then d/c Losartan Potassium 1 by mouth every 90tabs Qutaybeh S. 12/11/2018 50mg day Santos Brenner Tablets Levothyroxine Sodium 1 po 6 days a Qutaybeh S. 09/05/2013 week Santos Brenner 125mcg Tablets Aspirin 1 PO qd Qutaybeh S. 08/02/2006 81mg Chewtabs Santos Brenner Symbicort 2 puffs bid 1units Unknown 160-4.5mcg/Act Aerosol Ventolin HFA 2 puffs po qid as 1month Unknown 108(90Base) needed mcg/Act Aerosol Triamterene-HCTZ 02/03/19 reports Barber Daniels, not taking 1 tab M.DTani 37.5-25mg Tablets by mouth daily Albuterol Sulfate 1 vial via Unknown nebulizer 4 times (2.5mg/3ML) 0.083% daily as needed Nebulizer Osteo Bi-Flex Advanced [id number]- Unknown Triple Strength 1mg tablet, 2 Tablets tabs by mouth every day Medications Administered in Office Medication SIG Qnty Indications Ordering Provider Date Depomedrol 40MG ETELVINA Schneider 09/23/2015 Injection Immunizations CPT Code Status Date Vaccine Lot # [id number] Given 06/27/2016 Influenza Virus 3Yrs & Over Vital Signs Date Vital Result Comment 04/28/2019 2:00pm Height 64 inches 5'4" Weight 212.00 lb Heart Rate 72 /min BP Systolic Sitting 138 mmHg BP Diastolic Sitting 73 mmHg Body Temperature 97.3 F O2 % BldC Oximetry 95 % BMI (Body Mass Index) 36.4 kg/m2 02/03/2019 1:17pm Height 64 inches 5'4" Weight 207.00 lb Heart Rate 72 /min BP Systolic Sitting 119 mmHg BP Diastolic Sitting 70 mmHg Body Temperature 97.3 F O2 % BldC Oximetry 95 % BMI (Body Mass Index) 35.5 kg/m2 Results Test Date Facility Test Result H/L Range Note Comp Metabolic 02/03/2019 [facility] Sodium 140 mmol/L Normal 135-[address] [place] [address] [phone] Potassium 3.9 mmol/L Normal 3.5-5.0 Chloride 102 mmol/L Normal 101-111 Co2 Carbon Dioxide 30 mmol/L Normal 22-32 Anion Gap 8 mmol/L Normal 2-11 Glucose 85 mg/dL Normal 70-100 Blood Urea Nitrogen 19 mg/dL Normal 6-24 Creatinine 0.83 mg/dL Normal 0.51-0.95 BUN/Creatinine Ratio 22.9 High 8-20 Calcium 10.2 mg/dL Normal 8.6-10.3 Total Protein 7.3 g/dL Normal 6.4-8.9 Albumin 4.2 g/dL Normal 3.2-5.2 Globulin 3.1 g/dL Normal 2-4 Albumin/Globulin Ratio 1.4 Normal 1-3 Total Bilirubin 0.50 mg/dL Normal 0.2-1.0 Alkaline Phosphatase 81 U/L Normal 34-104 Alt 14 U/L Normal 7-52 Ast 15 U/L Normal 13-39 Egfr Non- 68.4 >60 Egfr 82.7 >60 1 Laboratory 02/03/2019 [facility] TSH (Thyroid 0.46 Normal 0.34 -5.60 test finding [address] Stim Horm) mcIU/[place] [address] [phone] 1 Because ethnic data is not always readily available, this report includes an eGFR for both -Americans and non- Americans. The National Kidney Disease Education Program (NKDEP) does not endorse the use of the MDRD equation for patients that are not between the ages of 18 and 70, are , have extremes of body size, muscle mass, or nutritional status, or are non- or non-. According to the National Kidney Foundation, irrespective of diagnosis, the stage of the disease is based on the level of kidney function: Stage Description GFR(mL/min/1.73 m(2)) 1 Kidney damage with normal or decreased GFR 90 2 Kidney damage with mild decrease in GFR 60-89 3 Moderate decrease in GFR 30-59 4 Severe decrease in GFR 15-29 5 Kidney failure <15 (or dialysis) Procedures Date Code Description Status 04/28/2019 25745 EKG Tracing & Interpretation Completed 12/11/2018 88632 EKG Tracing & Interpretation Completed 11/29/2017 [id number] Diabetic Retinal Eye Exam Completed 06/22/2014 [id number] Colonoscopy Completed Medical Devices Description No Information Available Encounters Type Date Location Provider Dx Diagnosis Office Visit 02/03/2019 [facility] Internal Genet Story MD G47.33 [facility] I10 Essential (primary) hypertension E03.9 Hypothyroidism, unspecified J45.40 Moderate persistent asthma, uncomplicated Z12.11 Encounter for screening for malignant neoplasm of colon M25.562 Pain in left knee Office Visit 12/11/2018 [facility] G47.33 Obstructive sleep 1:40p Cardiology Santos Brenner apnea (adult) (pediatric) I10 Essential (primary) hypertension E03.9 Hypothyroidism, unspecified R94.31 Abnormal electrocardiogram [ECG] [EKG] Assessments Date Code Description Provider 04/28/2019 R06.02 Shortness of breath Genet Story MD 04/28/2019 J45.901 Unspecified asthma with (acute) Genet Story MD exacerbation 02/03/2019 G47.33 Obstructive sleep apnea (adult) Genet Story MD (pediatric) 02/03/2019 I10 Essential (primary) hypertension Genet Story MD 02/03/2019 E03.9 Hypothyroidism, unspecified Genet Story MD 02/03/2019 J45.40 Moderate persistent asthma, Genet Story MD uncomplicated 02/03/2019 Z12.11 Encounter for screening for malignant Genet Story MD neoplasm of colon 02/03/2019 M25.562 Pain in left knee Genet Story MD 12/11/2018 G47.33 Obstructive sleep apnea (adult) Helen Brenner M.D. (pediatric) 12/11/2018 I10 Essential (primary) hypertension Helen Brenner M.D. 12/11/2018 E03.9 Hypothyroidism, unspecified Helen Brenner M.D. 12/11/2018 R94.31 Abnormal electrocardiogram [ECG] [EKG] Helen Brenner M.D. Plan of Treatment Future Appointment(s):05/01/2019 8:40 am - Genet Story MD at [facility] Internal Medicine - [facility]08/05/2019 1:20 pm - Genet Story MD at [facility] Internal Medicine - [facility]08/19/2019 1:45 pm - Mari Hein DNP, RN, OUT OF TOWN COLLECTION CLERK-BC at [facility]04/28/2019 - Genet Story, MDR06.02 Shortness of zjfbvoP70.901 Unspecified asthma with (acute) exacerbationNew Medication: Azithromycin 250 mg - take 2 tablets today; then one tablet dailyPrednisone 10 mg - take 4 tabs by mouth daily for 2 days then 3 tabs daily for 2 days then 2 tabs for 2 days then 1 tab for 2 days then d/cComments:Please start to take omeprazole 20 mg once daily; stay on that for as long as you are taking steroidsUse nebulizer every 4 hours today; from tomorrow you can decide if you wants to do it every 4-6 hoursFollow up:F/U Functional Status Description No Information Available Mental Status Description No Information Available Referrals Description No Information Available
--- OUTSIDE RECORDS SUMMARY | 2019-05-09 10:47 | XMS REPORT | Continuity of Care Document ---
:1950 External Reference #:[id number] Author Name Genet Story MD (transmitted by agent of provider Luann Goldstein) Address [address], [address] [place] [id number] Care Team Providers Name Role Phone Genet Story MD - Internal Medicine Care Team Information Loan Secretary [phone] Problems Active Problems Provider Date Benign essential hypertension Helen Brenner M.D. Onset: 10/27/2011 Ostium secundum type atrial septal Helen Brenner M.D. Onset: 2011 defect Dyspnea Helen Brenner M.D. Onset: 10/27/2011 Hypothyroidism Helen Brenner M.D. Onset: 11/01/2012 Palpitations Helen Brenner M.D. Onset: 05/08/2014 Obstructive sleep apnea of adult Mari Hein DNP RN, Onset: 08/04/2014 [facility] Essential hypertension Helen Brenner M.D. Onset: 09/20/2015 Uncomplicated moderate persistent Onset: asthma Social History Type Date Description Comments Sex Unknown Tobacco Use Start: Unknown End: Former Cigarette Smoker Unknown Smoking Status Reviewed: 05/01/19 Former Cigarette Smoker ETOH Use Rarely consumes [...] then one Tablets tablet daily Prednisone take 3 tablets 20tabs J45.901 Genet Story MD 04/28/2019 10mg Tablets for 6 days Losartan Potassium 1 by mouth every 90tabs Qutaybeh S. 12/11/2018 50mg day Santos Brenner Tablets Levothyroxine Sodium 1 po 6 days a Qutaybeh S. 09/05/2013 week Santos Brenner 125mcg Tablets Aspirin 1 PO qd Coreytaybnii S. 08/02/2006 81mg Chewtabs Santos Brenner Symbicort 2 puffs bid 1units Unknown 160-4.5mcg/Act Aerosol Ventolin HFA 2 puffs po qid as 1month Unknown 108(90Base) needed mcg/Act Aerosol Albuterol Sulfate 1 vial via Unknown nebulizer 4 times (2.5mg/3ML) 0.083% daily as needed Nebulizer Osteo Bi-Flex Advanced [id number]- Unknown Triple Strength 1mg tablet, 2 Tablets tabs by mouth every day Medications Administered in Office Medication SIG Qnty Indications Ordering Provider Date Depomedrol 40MG ETELVINA Schneider 09/23/2015 Injection Immunizations CPT Code Status Date Vaccine Lot # [id number] Given 06/27/2016 Influenza Virus 3Yrs & Over Vital Signs Date Vital Result Comment 05/01/2019 8:30am Height 64 inches 5'4" Weight 211.00 lb Heart Rate 76 /min BP Systolic Sitting 111 mmHg BP Diastolic Sitting 59 mmHg Body Temperature 97.1 F O2 % BldC Oximetry 95 % BMI (Body Mass Index) 36.2 kg/m2 04/28/2019 2:00pm Height 64 inches 5'4" Weight 212.00 lb Heart Rate 72 /min BP Systolic Sitting 138 mmHg BP Diastolic Sitting 73 mmHg Body Temperature 97.3 F O2 % BldC Oximetry 95 % BMI (Body Mass Index) 36.4 kg/m2 Results Test Date Facility Test Result H/L Range Note Comp Metabolic 02/03/2019 [facility] Sodium 140 mmol/L Normal 135-[address] [place] [address] [phone] Potassium 3.9 mmol/L Normal 3.5-5.0 Chloride 102 [...] >60 Egfr 82.7 >60 1 Laboratory 02/03/2019 [facility] TSH (Thyroid 0.46 Normal 0.34 -5.60 test finding [address] Stim Horm) mcIU/[place] [address] [phone] 1 Because ethnic data is not always [...] dialysis) Procedures Date Code Description Status 04/28/2019 30440 EKG Tracing & Interpretation Completed 12/11/2018 24991 EKG Tracing & Interpretation Completed 11/29/2017 [id number] Diabetic Retinal Eye Exam Completed 06/22/2014 [id number] Colonoscopy Completed Medical Devices Description No Information Available Encounters Type Date Location Provider Dx Diagnosis Office Visit 05/01/2019 [facility] Internal Genet Story MD J45.901 Unspecified asthma 8:40a Medicine - [facility] with (acute) exacerbation Office Visit 02/03/2019 [facility] Internal Genet Story MD G47.33 Obstructive sleep 1:20p Medicine - [facility] apnea (adult) (pediatric) I10 Essential (primary) hypertension E03.9 Hypothyroidism, unspecified J45.40 Moderate persistent asthma, uncomplicated Z12.11 Encounter for screening for malignant neoplasm of colon M25.562 Pain in left knee Office Visit 12/11/2018 [facility]olfo Howard G47.33 Obstructive sleep 1:40p Cardiology Santos Brenner apnea (adult) (pediatric) I10 Essential (primary) hypertension E03.9 Hypothyroidism, unspecified R94.31 Abnormal electrocardiogram [ECG] [EKG] Assessments Date Code Description Provider 05/01/2019 J45.901 Unspecified asthma with (acute) Genet Story MD exacerbation 04/28/2019 J45.901 Unspecified asthma with (acute) Genet Story MD exacerbation 04/28/2019 R07.89 Other chest pain Genet Story MD 02/03/2019 G47.33 Obstructive sleep apnea (adult) Genet [...] Helen Brenner M.D. Plan of Treatment Future Appointment(s):08/05/2019 1:20 pm - Genet Story MD at [facility] Internal Medicine - [facility]08/19/2019 1:45 pm - Mari Hein DNP, RN, COPYRIGHT MANAGER-BC at [facility]05/01/2019 - Genet Story MDJ45.901 Unspecified asthma with (acute) exacerbationComments:Wheezing not much betterContinue steroid at 3 tablets a day till seen next weekFollow up:F/U sunday Functional Status Description No Information Available Mental Status Description No Information Available Referrals Description No Information Available
--- OUTSIDE RECORDS SUMMARY | 2019-05-09 10:47 | XMS REPORT | Continuity of Care Document ---
:1950 External Reference #:[id number] Author Name Genet Story MD (transmitted by agent of provider Deirdre Agosto) Address [address], [place] [address] Care Team Providers Name Role Phone Genet Story MD - Internal Medicine Care Team Information Supervisor [employer] [phone] Problems Active Problems Provider Date Benign essential hypertension Helen Brenner M.D. Onset: 10/27/2011 Ostium secundum type atrial septal Helen Brenner M.D. Onset: 2011 defect Dyspnea Helen Brenner M.D. Onset: 10/27/2011 Hypothyroidism Helen Brenner M.D. Onset: 11/01/2012 Palpitations Helen Brenner M.D. Onset: 05/08/2014 Obstructive sleep apnea of adult Mari Hein DNP, RN, Onset: 08/04/2014 [facility] Essential hypertension Helen Brenner M.D. Onset: 09/20/2015 Uncomplicated moderate persistent Onset: asthma Social History Type Date Description Comments Sex Unknown Tobacco Use Start: Unknown End: Former Cigarette Smoker Unknown Smoking Status Reviewed: 05/06/19 Former Cigarette Smoker ETOH Use Rarely consumes [...] Medications SIG Qnty Indications Ordering Date Provider Prednisone take 3 tablets 20tabs J45.901 Genet Story MD 04/28/2019 10mg Tablets for 6 days Losartan Potassium 1 by mouth every 90tabs Qutaybeh S. 12/11/2018 50mg day Santos Brenner Tablets Levothyroxine Sodium 1 po 6 days a Qutaybnii S. 09/05/2013 week Santos Brenner 125mcg Tablets Aspirin 1 PO qd Qutaybeh S. 08/02/2006 81mg Chewtabs Santos Brenner Symbicort 2 puffs bid 1units Unknown 160-4.5mcg/Act Aerosol Ventolin HFA 2 puffs po qid as 1month Unknown 108(90Base) needed mcg/Act Aerosol Albuterol Sulfate 1 vial via Unknown nebulizer 4 times (2.5mg/3ML) 0.083% daily as needed Nebulizer Osteo Bi-Flex Advanced [id number]- Unknown Triple Strength 1mg tablet, 2 Tablets tabs by mouth every day History Medications Azithromycin take 2 tablets 6tabs J45.901 Genet Story MD 04/28/2019 - 250mg today; then one 05/05/2019 Tablets tablet daily Medications Administered in Office Medication SIG Qnty Indications Ordering Provider Date Depomedrol 40MG ETELVINA Schneider 09/23/2015 Injection Immunizations CPT Code Status Date Vaccine Lot # [id number] Given 06/27/2016 Influenza Virus 3Yrs & Over Vital Signs Date Vital Result Comment 05/06/2019 8:02am Height 64 inches 5'4" Weight 212.38 lb Heart Rate 69 /min BP Systolic 127 mmHg BP Diastolic 71 mmHg Body Temperature 97.2 F O2 % BldC Oximetry 97 % BMI (Body Mass Index) 36.5 kg/m2 05/01/2019 8:30am Height 64 inches 5'4" Weight 211.00 lb Heart Rate 76 /min BP Systolic Sitting 111 mmHg BP Diastolic Sitting 59 mmHg Body Temperature 97.1 F O2 % BldC Oximetry 95 % BMI (Body Mass Index) 36.2 kg/m2 Results Test Date Facility Test Result H/L Range Note Comp Metabolic 02/03/2019 [facility] Sodium 140 mmol/L Normal 135-[address] [place] [address] [phone] Potassium 3.9 mmol/L Normal 3.5-5.0 Chloride 102 [...] >60 Egfr 82.7 >60 1 Laboratory 02/03/2019 [facility] TSH (Thyroid 0.46 Normal 0.34 -5.60 test finding [address] Stim Horm) mcIU/[place] [address] [phone] 1 Because ethnic data is not always [...] dialysis) Procedures Date Code Description Status 04/28/2019 49040 EKG Tracing & Interpretation Completed 12/11/2018 44115 EKG Tracing & Interpretation Completed 11/29/2017 [id number] Diabetic Retinal Eye Exam Completed 06/22/2014 [id number] Colonoscopy Completed Medical Devices Description No Information Available Encounters Type Date Location Provider Dx Diagnosis Office Visit 05/01/2019 [facility] Internal Genet Story MD J45.901 Unspecified asthma 8:40a Medicine - [facility] with (acute) exacerbation Office Visit 04/28/2019 [facility] Internal Genet Story MD J45.901 Unspecified asthma 2:00p Medicine - [facility] with (acute) exacerbation R07.89 Other chest pain Office Visit 02/03/2019 1:20p [facility] Internal Genet Story, G47.33 Obstructive sleep Medicine - [facility] apnea (adult) (pediatric) I10 Essential (primary) hypertension E03.9 Hypothyroidism, unspecified J45.40 Moderate persistent asthma, uncomplicated Z12.11 Encounter for screening for malignant neoplasm of colon M25.562 Pain in left knee Office Visit 12/11/2018 [place] Helen [place]uma. G47.33 Obstructive sleep 1:40p Cardiology Santos Brenner apnea (adult) (pediatric) I10 Essential (primary) hypertension E03.9 Hypothyroidism, unspecified R94.31 Abnormal electrocardiogram [ECG] [EKG] Assessments Date Code Description Provider 05/06/2019 J45.901 Unspecified asthma with (acute) Genet Story MD exacerbation 05/01/2019 J45.901 Unspecified asthma with (acute) Genet [...] Z12.11 Encounter for screening for malignant Genet Jez, MD neoplasm of colon 02/03/2019 M25.562 Pain in left knee Genet Story MD 12/11/2018 G47.33 Obstructive sleep apnea (adult) Helen Brenner M.D. (pediatric) 12/11/2018 I10 Essential (primary) hypertension Helen Brenner M.D. 12/11/2018 E03.9 Hypothyroidism, unspecified Helen Brenner M.D. 12/11/2018 R94.31 Abnormal electrocardiogram [ECG] [EKG] Helen Brenner M.D. Plan of Treatment Future Appointment(s):05/13/2019 8:00 am - Genet Story MD at [facility] Internal Medicine - [facility]08/05/2019 1:20 pm - Genet Story MD at [facility] Internal Medicine - [facility]08/19/2019 1:45 pm - Mari Hein DNP, RN, BLENDING SUPERVISOR-BC at [facility]05/06/2019 - Genet Story MDJ45.901 Unspecified asthma with (acute) exacerbationComments:Continue same dose steroid for this weekStretch out the breathing treatments to every 6-8 hours as neededF/U 1 weekFollow up:F/U 1 week Functional Status Description No Information Available Mental Status Description No Information Available Referrals Description No Information Available
[2019-05-09 10:53] LABS: ABS Eosinophils 0.1 10^3/ul (0-0.6); ABS Lymphocytes 1.6 10^3/ul (1.0-4.8); ABS Monocytes 0.4 10^3/ul (0-0.8); ABS Neutrophils 10.1 10^3/ul (1.5-7.7); Eosinophil % 0.5 %; Hematocrit 38 % (35-47); Hemoglobin 12.9 g/dL (12.0-16.0); Lymphocyte % 13.1 %; Mean Corpuscular HGB Conc 34 g/dL (31-36); Mean Corpuscular Hemoglobin 30 pg (27-31); Mean Corpuscular Volume 89 fL (80-97); Mean Platelet Volume 8.3 fL (7.4-10.4); Platelet Count 292 10^3/uL (150-450); Red Blood Count 4.33 10^6 /uL (3.70-4.87); Red Cell Distribution Width 13 % (10-15); White Blood Count 12.2 10^3/uL (3.5-10.8)
[2019-05-09 11:10] LABS: Activated Partial Thrombo Time 32.7 seconds (26.0-38.0); INR 0.9 (0.82-1.09)
[2019-05-09 11:11] LABS: Albumin/Globulin Ratio 1.3 (1-3); BUN/Creatinine Ratio 29.2 (8-20); Calcium 9.5 mg/dL (8.6-10.3); EGFR African American 69.9 (>60); EGFR Non-African American 57.8 (>60); Globulin 3.1 g/dL (2-4); Magnesium 1.9 mg/dL (1.9-2.7); Potassium 3.6 mmol/L (3.5-5.0); Total Bilirubin 0.4 mg/dL (0.2-1.0); Total Protein 7.1 g/dL (6.4-8.9)
[2019-05-09 11:14] LABS: Troponin I 0.01 ng/mL (<0.04)
[2019-05-09 11:16] LABS: CKMB ng/mL 4.4 ng/mL (0.6-6.3)
[2019-05-09 11:54] LABS: TSH (Thyroid Stimulating Horm) 1.65 mcIU/mL (0.34-5.60)
[2019-05-09 12:16] LABS: Urine Appearance Clear; Urine Bacteria 1+ (Absent); Urine Bilirubin Negative (Negative); Urine Blood 2+ (Negative); Urine Color Straw; Urine Glucose 1+(50 mg/dL) (Negative); Urine Ketones Negative (Negative); Urine Nitrite Negative (Negative); Urine Protein Negative (Negative); Urine Red Blood Cell Trace(0-2/hpf) (Absent); Urine Specific Gravity 1.008 (1.010-1.030); Urine Squamous Epithelial Cell Present (Absent); Urine Urobilinogen Negative (Negative); Urine White Blood Cell Trace(0-5/hpf) (Absent)
[2019-05-09 14:30] VITALS: BP 109/61
== END 2019-05-09 14:15 | disposition home or self-care (01) ==
LOC: ED 10:00
DX: R10.13 Epigastric pain (principal); R07.2 Precordial pain; R06.02 Shortness of breath; R42 Dizziness and giddiness; R61 Generalized hyperhidrosis; R11.0 Nausea; M54.6 Pain in thoracic spine; I10 Essential (primary) hypertension; I49.9 Cardiac arrhythmia, unspecified; J45.909 Unspecified asthma, uncomplicated; Z79.82 Long term (current) use of aspirin; Z88.1 Allergy status to other antibiotic agents; Z91.041 Radiographic dye allergy status; Z91.048 Other nonmedicinal substance allergy status; Z87.891 Personal history of nicotine dependence
CPT/HCPCS: 36415; 71045; 71250; 74176; 80053; 81003; 81015; 82550; 82553; 83735; 83880; 84443; 84484; 85025; 85610; 85730; 87086; 93005; 96374; 96375; 99283; A9270-GY; J2270; J2405

== ENCOUNTER 2023-10-01 20:15 | Inpatient (IN) ==
[2023-10-01 20:53] LABS: ABS Eosinophils 0.3 10^3/uL (0.0-0.5); ABS Lymphocytes 2.8 10^3/uL (1.0-4.8); ABS Monocytes 0.6 10^3/uL (0.0-0.9); ABS Neutrophils 5.9 10^3/uL (1.5-7.6); ABS Nucleated RBC 0.01 10^3/ul; Eosinophil % 3.1 %; Hematocrit 37.4 % (35-45); Hemoglobin 12.7 g/dL (11.5-14.3); Lymphocyte % 29.3 %; Mean Corpuscular Hemoglobin 30.2 pg (27-33); Mean Corpuscular Hgb Conc 33.9 g/dL (31-36); Mean Corpuscular Volume 89.1 fL (80-97); Nucleated Red Blood Cells % 0.1 %/100WBC (0.0-0.8); Platelet Count 303 10^3/uL (150-450); Red Cell Distribution Width 13.2 % (12-17); White Blood Count 9.6 10^3/uL (3.8-11.8)
[2023-10-01 21:02] LABS: Activated Partial Thrombo Time 34.3 seconds (26.0-38.0); INR 1.03 (0.83-1.13)
[2023-10-01] MEDS: TENECTEPLASE 50 MG VIAL KIT 5 MG/ML (reconstituted) IV ONE (21:08)
[2023-10-01 21:13] LABS: Albumin 4.2 g/dL (3.2-5.2); Albumin/Globulin Ratio 1.2 (1-3); Calcium 9.8 mg/dL (8.6-10.3); Creatinine, Serum 0.85 mg/dL (0.51-0.95); Direct Bilirubin 0.1 mg/dL (0.03-0.18); Globulin 3.5 g/dL (2-4); Indirect Bilirubin 0.2 mg/dL (0.3-1.0); Potassium 3.4 mmol/L (3.5-5.0); Total Bilirubin 0.3 mg/dL (0.2-1.0); Total Protein 7.7 g/dL (6.4-8.9); eGFR CKD-EPI 72.7 (>60)
[2023-10-01] MEDS ORDERED: Albuterol HFA INHALER 8 gm MDI INH PRN (22:36)
[2023-10-01] MEDS ORDERED: Albuterol 2.5mg/3 ml (0.083%) NEB.SOLN INH PRN (22:36)
[2023-10-02] MEDS: KCL 20 MEQ/100 ML IVPREMIX 20 MEQ/100 ML BAG IV ONE (00:03)
[2023-10-02 05:23] LABS: Hematocrit 32.8 % (35-45); Hemoglobin 11.1 g/dL (11.5-14.3); Mean Corpuscular Hemoglobin 30.6 pg (27-33); Mean Corpuscular Hgb Conc 33.7 g/dL (31-36); Mean Corpuscular Volume 90.5 fL (80-97); Red Blood Count 3.62 10^6/uL (3.63-4.92); Red Cell Distribution Width 13.8 % (12-17); White Blood Count 9.6 10^3/uL (3.8-11.8)
[2023-10-02 05:38] LABS: Calcium 8.7 mg/dL (8.6-10.3); Magnesium 1.6 mg/dL (1.9-2.7); Potassium 3.7 mmol/L (3.5-5.0)
[2023-10-02 06:23] LABS: ABS Basophils 0.1 10^3/uL (0.0-0.1); ABS Eosinophils 0.3 10^3/uL (0.0-0.5); ABS Lymphocytes 2.6 10^3/uL (1.0-4.8); ABS Monocytes 0.5 10^3/uL (0.0-0.9); ABS Nucleated RBC 0.01 10^3/ul; Lymphocyte % 27.5 %; Nucleated Red Blood Cells % 0.1 %/100WBC (0.0-0.8)
[2023-10-02] MEDS: Magnesium Sulfate 2 gm BAG 2 GM/50 ML BAG IVPB ONE (06:35)
[2023-10-02] MEDS: Potassium Chlor 20 meq TAB.ER PO ONE (06:36)
[2023-10-02 06:43] LABS: Creatinine, Serum 0.76 mg/dL (0.51-0.95); eGFR CKD-EPI 83.2 (>60)
[2023-10-02 06:54] LABS: Mean Platelet Volume 8.1 fL (7.5-11.2); Platelet Count 242 10^3/uL (150-450)
[2023-10-02] MEDS: Mometasone/Formoter 200/5 MDI INH SCH (08:53)
[2023-10-03 05:44] LABS: ABS Eosinophils 0.2 10^3/uL (0.0-0.5); ABS Monocytes 0.6 10^3/uL (0.0-0.9); ABS Neutrophils 6.8 10^3/uL (1.5-7.6); ABS Nucleated RBC 0.01 10^3/ul; Eosinophil % 2.4 %; Hematocrit 33.5 % (35-45); Hemoglobin 11.6 g/dL (11.5-14.3); Lymphocyte % 20.9 %; Mean Corpuscular Hemoglobin 30.7 pg (27-33); Mean Corpuscular Hgb Conc 34.6 g/dL (31-36); Mean Corpuscular Volume 88.7 fL (80-97); Mean Platelet Volume 7.9 fL (7.5-11.2); Nucleated Red Blood Cells % 0.1 %/100WBC (0.0-0.8); Platelet Count 272 10^3/uL (150-450); Red Blood Count 3.78 10^6/uL (3.63-4.92); Red Cell Distribution Width 13.3 % (12-17); White Blood Count 9.7 10^3/uL (3.8-11.8)
[2023-10-03 05:58] LABS: Creatinine, Serum 0.74 mg/dL (0.51-0.95); Magnesium 1.8 mg/dL (1.9-2.7); Potassium 3.6 mmol/L (3.5-5.0); eGFR CKD-EPI 85.9 (>60)
[2023-10-03 14:18] VITALS: BP 148/72
== END 2023-10-03 14:38 | disposition home or self-care (01) | DRG 62 ==
LOC: ED 20:15 → EDHOLD 21:17 → ICU 23:17 → MEDTELE 10-03 03:23
PROVIDERS: ADMIT Internal Medicine Pulmonary Disease; ATTEND Hospitalist

== ENCOUNTER 2023-10-31 14:34 | Inpatient (IN) ==
[2023-10-31 17:15] LABS: ABS Basophils 0.1 10^3/uL (0.0-0.1); ABS Eosinophils 0.4 10^3/uL (0.0-0.5); ABS Lymphocytes 2.4 10^3/uL (1.0-4.8); ABS Monocytes 0.6 10^3/uL (0.0-0.9); ABS Neutrophils 4.8 10^3/uL (1.5-7.6); ABS Nucleated RBC 0.01 10^3/ul; Eosinophil % 4.8 %; Hematocrit 19.7 % (35-45); Hemoglobin 6.5 g/dL (11.5-14.3); Lymphocyte % 28.4 %; Mean Corpuscular Hemoglobin 28.6 pg (27-33); Mean Corpuscular Hgb Conc 32.8 g/dL (31-36); Mean Corpuscular Volume 87.2 fL (80-97); Mean Platelet Volume 7.8 fL (7.5-11.2); Nucleated Red Blood Cells % 0.1 %/100WBC (0.0-0.8); Platelet Count 325 10^3/uL (150-450); Red Blood Count 2.26 10^6/uL (3.63-4.92); Red Cell Distribution Width 14.5 % (12-17); White Blood Count 8.3 10^3/uL (3.8-11.8)
[2023-10-31 17:49] LABS: Albumin 3.9 g/dL (3.2-5.2); Albumin/Globulin Ratio 1.4 (1-3); Calcium 9.5 mg/dL (8.6-10.3); Creatinine, Serum 0.9 mg/dL (0.51-0.95); Globulin 2.8 g/dL (2-4); Potassium 3.7 mmol/L (3.5-5.0); Total Bilirubin 0.3 mg/dL (0.2-1.0); Total Protein 6.7 g/dL (6.4-8.9); eGFR CKD-EPI 67.9 (>60)
[2023-11-01 03:39] LABS: INR 1.29 (0.83-1.13)
[2023-11-01] MEDS ORDERED: Albuterol 2.5mg/3 ml (0.083%) NEB.SOLN INH PRN (05:27)
[2023-11-01] MEDS ORDERED: Albuterol HFA INHALER 8 gm MDI INH PRN (05:27)
[2023-11-01] MEDS ORDERED: NON FORMULARY MED (Acetaminophen 650 mg Tablet Extended Release) PO PRN (05:27)
[2023-11-01] MEDS: NS 0.9% 1000 ml BAG 1,000 ML IV SCH (06:19)
[2023-11-01] MEDS: Pantoprazole VIAL 40 MG VIAL IV SCH (06:34)
[2023-11-01] MEDS: Mometasone/Formoter 200/5 MDI INH SCH (08:38)
[2023-11-01 10:43] LABS: ABS Eosinophils 0.3 10^3/uL (0.0-0.5); ABS Lymphocytes 2.2 10^3/uL (1.0-4.8); ABS Monocytes 0.6 10^3/uL (0.0-0.9); ABS Neutrophils 5.8 10^3/uL (1.5-7.6); ABS Nucleated RBC 0.01 10^3/ul; Eosinophil % 3.7 %; Hematocrit 22.4 % (35-45); Hemoglobin 7.4 g/dL (11.5-14.3); Lymphocyte % 24.4 %; Mean Corpuscular Hemoglobin 28.9 pg (27-33); Mean Corpuscular Hgb Conc 33.3 g/dL (31-36); Mean Corpuscular Volume 86.8 fL (80-97); Mean Platelet Volume 7.7 fL (7.5-11.2); Nucleated Red Blood Cells % 0.1 %/100WBC (0.0-0.8); Platelet Count 300 10^3/uL (150-450); Red Blood Count 2.58 10^6/uL (3.63-4.92); Red Cell Distribution Width 14.4 % (12-17); White Blood Count 8.9 10^3/uL (3.8-11.8)
[2023-11-01] MEDS ORDERED: Lidocaine 2% PF 5 ML VIAL ONE (15:22)
[2023-11-02 05:30] LABS: ABS Eosinophils 0.3 10^3/uL (0.0-0.5); ABS Lymphocytes 2.5 10^3/uL (1.0-4.8); ABS Monocytes 0.5 10^3/uL (0.0-0.9); ABS Neutrophils 5.2 10^3/uL (1.5-7.6); Eosinophil % 3.9 %; Hematocrit 20.3 % (35-45); Hemoglobin 6.7 g/dL (11.5-14.3); Lymphocyte % 28.8 %; Mean Corpuscular Hemoglobin 28.8 pg (27-33); Mean Corpuscular Hgb Conc 33.1 g/dL (31-36); Mean Corpuscular Volume 86.8 fL (80-97); Mean Platelet Volume 7.6 fL (7.5-11.2); Platelet Count 267 10^3/uL (150-450); Red Blood Count 2.34 10^6/uL (3.63-4.92); Red Cell Distribution Width 14.3 % (12-17); White Blood Count 8.6 10^3/uL (3.8-11.8)
[2023-11-02 06:04] LABS: Calcium 8.6 mg/dL (8.6-10.3); Creatinine, Serum 0.8 mg/dL (0.51-0.95); Potassium 3.6 mmol/L (3.5-5.0); eGFR CKD-EPI 78.2 (>60)
[2023-11-02 15:45] LABS: Hematocrit 24.9 % (35-45); Hemoglobin 8.4 g/dL (11.5-14.3)
[2023-11-03 06:54] LABS: ABS Eosinophils 0.3 10^3/uL (0.0-0.5); ABS Lymphocytes 2.3 10^3/uL (1.0-4.8); ABS Monocytes 0.6 10^3/uL (0.0-0.9); ABS Neutrophils 5.1 10^3/uL (1.5-7.6); ABS Nucleated RBC 0.01 10^3/ul; Eosinophil % 3.8 %; Hematocrit 24.5 % (35-45); Hemoglobin 8.1 g/dL (11.5-14.3); Lymphocyte % 27.9 %; Mean Corpuscular Hemoglobin 28.6 pg (27-33); Mean Corpuscular Hgb Conc 33.2 g/dL (31-36); Mean Corpuscular Volume 85.9 fL (80-97); Mean Platelet Volume 7.6 fL (7.5-11.2); Nucleated Red Blood Cells % 0.1 %/100WBC (0.0-0.8); Platelet Count 265 10^3/uL (150-450); Red Blood Count 2.85 10^6/uL (3.63-4.92); White Blood Count 8.3 10^3/uL (3.8-11.8)
[2023-11-03] MEDS: PEG 3000 GI LAVAGE 1 GALLON PO ONE (13:39)
[2023-11-03] MEDS: Ondansetron 4 mg VIAL 2 MG/ML 2 ml VIAL IV PRN (17:10)
[2023-11-04] MEDS: PEG 3000 GI LAVAGE 1 GALLON PO ONE (03:56)
[2023-11-04] MEDS ORDERED: PEG 3000 GI LAVAGE 1 GALLON PO ONE ×2 (04:00→07:00)
[2023-11-04 06:38] LABS: ABS Basophils 0.1 10^3/uL (0.0-0.1); ABS Eosinophils 0.3 10^3/uL (0.0-0.5); ABS Monocytes 0.5 10^3/uL (0.0-0.9); ABS Neutrophils 6.4 10^3/uL (1.5-7.6); ABS Nucleated RBC 0.01 10^3/ul; Eosinophil % 3.6 %; Hematocrit 25.9 % (35-45); Hemoglobin 8.8 g/dL (11.5-14.3); Lymphocyte % 21.8 %; Mean Corpuscular Hemoglobin 28.8 pg (27-33); Mean Corpuscular Hgb Conc 33.8 g/dL (31-36); Mean Corpuscular Volume 85.3 fL (80-97); Mean Platelet Volume 7.5 fL (7.5-11.2); Nucleated Red Blood Cells % 0.1 %/100WBC (0.0-0.8); Platelet Count 289 10^3/uL (150-450); Red Blood Count 3.04 10^6/uL (3.63-4.92); White Blood Count 9.3 10^3/uL (3.8-11.8)
[2023-11-04 07:15] LABS: Calcium 8.9 mg/dL (8.6-10.3); Creatinine, Serum 0.87 mg/dL (0.51-0.95); Potassium 3.1 mmol/L (3.5-5.0); eGFR CKD-EPI 70.7 (>60)
[2023-11-04] MEDS ORDERED: Propofol 10 MG/ML 20 ML BTL ONE ×2 (09:17→09:54)
[2023-11-04] MEDS ORDERED: Glycopyrrolate IV 0.2 MG/ML 1 ML VIAL ONE (09:17)
[2023-11-04 10:23] VITALS: BP 110/58
[2023-11-04] MEDS: KCL 20 MEQ/100 ML IVPREMIX 20 MEQ/100 ML BAG IV SCH (10:28)
[2023-11-04] MEDS: Potassium Chlor 20 meq TAB.ER PO ONE (10:46)
== END 2023-11-04 12:45 | disposition home or self-care (01) | DRG 378 ==
LOC: ED 14:34 → EDHOLD 14:34 → SUATTDRO 11-01 05:19 → MEDTELE 11-01 11:20
PROVIDERS: ADMIT Internal Medicine; ATTEND Student in an Organized Health Care Education/Training Program
PROC: O.GIEGD (2023-11-01 14:35)